=== PATIENT | female | born 2000 | race Hispanic/Latino ===

== ENCOUNTER 2020-05-11 18:17 | Emergency (ER) | payer OTHER ==
--- OUTSIDE RECORDS SUMMARY | 2020-05-11 18:20 | XMS REPORT | Continuity of Care Document ---
:2000 Author Organization [facility] t Address [address] [place] [address] Care Team Providers Name Role Phone Butch Gray MD Attending Clinician Won Aparicio Attending Clinician Sathya Mejias Attending Clinician Doctor Unassigned, Name Attending Clinician Unavailable Problems This patient has no known problems. Allergies, Adverse Reactions, Alerts This patient has no known allergies or adverse reactions. Medications This patient has no known medications. Procedures This patient has no known procedures. Encounters Start End Encounter Admission Attending Care Care Encounter Source Date/Time Date/Time Type Type Clinicians Facility Department ID 2020-05-06 2020-05-06 Initial Earlene Gray [facility] [id number] 09:56:43 11:24:52 [place] [id number] Visit [place] [id number] [place] [id number] [address] 2020-04-17 2020-04-17 [facility]phone [facility] [id number] 00:00:00 00:00:00 Becky C VARNISH FINISHER [id number] [facility] [id number] MATERNAL [id number] & CHILD 107 [facility] 2020-04-08 2020-04-08 Telephone Brandenadrianna [facility] [id number] 00:00:00 00:00:00 Becky C VARNISH FINISHER [id number] [facility] [id number] MATERNAL [id number] & CHILD 107 [facility] 2020-03-26 2020-03-26 Telephone Kishan [facility] [id number] 00:00:00 00:00:00 Emma N VARNISH FINISHER [id number] [facility] [id number] MATERNAL [id number] & CHILD 107 [facility] 2020-03-21 2020-03-21 Initial Kishan [facility] [id number] 09:06:48 10:00:50 Emma N VARNISH FINISHER [id number] Visit [facility] [id number] MATERNAL [phone] & CHILD 107 [facility] 2020-03-21 2020-03-21 Orders Doctor PIÑA [id number] 00:00:00 00:00:00 Only Unassigned, JIMENA [id number] [place] [facility] [id number] 2019-07-28 2019-07-28 Telephone [facility], [facility] [id number] 00:00:00 00:00:00 Becky C VARNISH FINISHER [id number] [facility] [id number] MATERNAL [phone] & CHILD 107 [facility] 2019-07-26 2019-07-26 Telephone [facility], [facility] [id number] 00:00:00 00:00:00 Becky C VARNISH FINISHER [id number] [facility] [id number] MATERNAL [id number] & CHILD 107 [facility] 2019-07-20 2019-07-20 Telephone [facility], [facility] [id number] 00:00:00 00:00:00 Becky C VARNISH FINISHER [id number] [facility] [id number] MATERNAL [id number] & CHILD 107 [facility] 2019-07-19 2019-07-19 Telephone [facility], [facility] [id number] 00:00:00 00:00:00 Becky C VARNISH FINISHER [id number] [facility] [id number] MATERNAL [phone] & CHILD [address] [place] [address] Results This patient has no known results.
[2020-05-11 20:06] LABS: Urine Blood NEGATIVE (NEG); Urine Glucose NEGATIVE (NEG); Urine Protein NEGATIVE (NEG); Urine Specific Gravity >1.030 (1.005-1.030); Urine pH 5.5 (5.0-7.0)
--- NOTE | 2020-05-11 20:35 | RAD REPORT ---
EXAM DESCRIPTION: RAD - Ankle Right 3 View - 05/11/2020 8:27 pm CLINICAL HISTORY: Ankle pain, twisting injury COMPARISON: None. FINDINGS: No fracture, dislocation or periosteal reaction. No joint effusion seen. No joint space na rrowing. Lateral soft tissue swelling is present. IMPRESSION: Soft tissue swelling with no right ankle fracture.
--- NOTE | 2020-05-11 21:13 | ER ---
Nurse's Notes [facility] Name: Lyssa Ford Age: 20 yrs Sex: Female : 2000 Arrival Date: 05/11/2020 Time: 18:22 Bed 23 Private MD: Diagnosis: Sprain of ankle;Fall on same level from slipping, tripping and stumbling Presentation: 05/11 19:13 Chief complaint: Patient states: Rolled R ankle and fell <30 minutes WATER SPONGER. Reports pain ca1 and swelling on R ankle. Reports RLQ pain after the fall. x 12 weeks. Coronavirus screen: Client denies travel out of the [place] in the last 14 days. At this time, the client does not indicate any symptoms associated with coronavirus-19. Ebola Screen: Patient negative for fever greater than or equal to 101.5 degrees Fahrenheit, and additional compatible Ebola Virus Disease symptoms Patient denies exposure to infectious person. Patient denies travel to an Ebola-affected area in the 21 days before illness onset. No symptoms or risks identified at this time. Initial Sepsis Screen: Does the patient meet any 2 criteria? No. Patient's initial sepsis screen is negative. Does the patient have a suspected source of infection? No. Patient's initial sepsis screen is negative. Risk Assessment: Do you want to hurt yourself or someone else? Patient reports no desire to harm self or others. Onset of symptoms was May 11, 2020. 19:13 Method Of Arrival: Ambulatory ca1 19:13 Acuity: COLTON 3 ca1 CUSTOMER CARE COORDINATOR: 19:15 2, Premature 1, Living 1, LMP 02/23/2020 ca1 Historical: - Allergies: 19:15 No Known Allergies; ca1 - Home Meds: 19:15 Vitamin Oral tab 1 tab once daily [Active]; ca1 20:47 promethazine 25 mg oral tab 1 tab as needed [Active]; Vitamin B-6 Oral as needed for sf Nausea Gravidarum [Active]; Unisom (doxylamine) oral oral as needed for Nausea Gravidarum [Active]; - PMHx: 19:15 None; ca1 - PSHx: 19:15 None; ca1 - Immunization history:: Flu vaccine is up to date. - Social history:: Smoking status: Patient denies any tobacco usage or history of. Screenin:35 Abuse screen: Denies threats or abuse. Denies injuries from another. Nutritional sf screening: No deficits noted. Tuberculosis screening: No symptoms or risk factors identified. Never had TB. Possible symptoms: None Risk factors: None. Fall Risk None identified. Fall in past 12 months (25 points). No secondary diagnosis (0 pts). No IV (0 pts). Ambulatory Aid- None/Bed Rest/Nurse Assist (0 pts). Gait- Impaired (20 pts.). Mental Status- Oriented to own ability (0 pts). Total James Fall Scale indicates Low Risk Score (25-44 pts). Fall prevention measures have been instituted. Side Rails Up X 2 Placed close to Nursing Station. Assessment: 20:35 General: Appears in no apparent distress. comfortable, Behavior is calm, cooperative. sf Pain: Complains of pain in right ankle Pain currently is 8 out of 10 on a pain scale. Neuro: No deficits noted. Level of Consciousness is awake, alert, obeys commands, Oriented to person, place, time, situation, Appropriate for age. Cardiovascular: No deficits noted. Capillary refill < 3 seconds Patient's skin is warm and dry. Respiratory: No deficits noted. Airway is patent Respiratory effort is even, unlabored, Respiratory pattern is regular, symmetrical. GI: Abdomen is non-distended, Reports lower abdominal pain, Patient currently denies diarrhea, nausea, vomiting. : Denies discharge, vaginal bleeding, vaginal itching. Musculoskeletal: Circulation, motion, and sensation intact. Swelling present in right ankle Tenderness present in right ankle Reports pain in right ankle. Vital Signs: 19:13 BP 124 / 80; Pulse 90; Resp 16 S; Temp 97.7(TE); Pulse Ox 100% on R/A; Weight 85.28 kg ca1 (R); Height 5 ft. 4 in. (162.56 cm) (R); Pain 8/10; 19:13 Body Mass Index 32.27 (85.28 kg, 162.56 cm) ca1 ED Course: 18:22 Patient arrived in ED. am2 19:15 Triage completed. ca1 19:15 Arm band placed on right wrist. ca1 19:37 [facility] kb 19:37 Donnie Gibbs MD is Attending Physician. kb 19:38 Kishan, [place], RN is Primary Nurse. iw 20:14 Ankle Right 3 View XRAY Sent. sf 20:14 X-ray(s) taken. sf 20:33 Ankle Right 3 View XRAY In Process Unspecified. EDMS 20:35 Patient has correct armband on for positive identification. Bed in low position. Call sf light in reach. Side rails up X 1. Door closed. Noise minimized. Visitors limited. Verbal reassurance given. 20:47 Bedside ultrasound. sf 20:51 Wound care: ice pack applied. sf 21:09 Matter Eval Tm 1 In Process Unspecified. EDMS 21:26 Jordan wrap to right ankle. sf 21:27 No provider procedures requiring assistance completed. Patient did not have IV access sf during this emergency room visit. Administered Medications: No medications were administered Outcome: 21:12 Discharge ordered by . kb 21:27 Discharged to home via wheelchair. sf 21:27 Condition: stable 21:27 Discharge instructions given to patient, Instructed on discharge instructions, follow up and referral plans. Demonstrated understanding of instructions, follow-up care. 21:34 Patient left the ED. sf Signatures: Dispatcher [employer] EDMS Jackie Woodruff, SOLID DIE CUTTER-C SOLID DIE CUTTER-Ckb Magnolia Holley, RN RN iw Gaby Lynch am2 Devika Mg RN RN ca1 Gino Xiong RN RN sf Corrections: (The following items were deleted from the chart) 19:25 19:13 Chief complaint: Patient states: Rolled R ankle and fell. Reports pain and ca1 swelling on R ankle. Reports RLQ pain after the fall. x 12 weeks. ca1 20:47 19:15 Home Meds: Promethazine Oral; ca1 sf 21:09 20:47 To radiology for Transvaginal Ob+US.RAD.HAVEN. sf EDMS
--- NOTE | 2020-05-11 21:13 | EDPHYS ---
Physician Documentation [facility] Name: Lyssa Ford Age: 20 yrs Sex: Female : 2000 Arrival Date: 05/11/2020 Time: 18:22 Bed 23 Private MD: ED Physician Donnie Gibbs HPI: 05/11 20:55 This 20 yrs old Female presents to ER via Ambulatory with complaints of Fall kb Injury, 12 wks preg, Abdominal Cramping - RLQ. 20:55 Details of fall: The patient fell from an upright position, during sports, soccer. kb Onset: The symptoms/episode began/occurred just prior to arrival. Associated injuries: The patient sustained injury to the abdomen, specifically the right lower quadrant, cramping, right ankle, painful injury, swelling. Severity of symptoms: At their worst the symptoms were moderate, in the emergency department the symptoms are unchanged. The patient has not experienced similar symptoms in the past. The patient has not recently seen a physician. SITE LEAD: 19:15 2, Premature 1, Living 1, LMP 02/23/2020 ca1 Historical: - Allergies: 19:15 No Known Allergies; ca1 - Home Meds: 19:15 Vitamin Oral tab 1 tab once daily [Active]; ca1 20:47 promethazine 25 mg oral tab 1 tab as needed [Active]; Vitamin B-6 Oral as needed for sf Nausea Gravidarum [Active]; Unisom (doxylamine) oral oral as needed for Nausea Gravidarum [Active]; - PMHx: 19:15 None; ca1 - PSHx: 19:15 None; ca1 - Immunization history:: Flu vaccine is up to date. - Social history:: Smoking status: Patient denies any tobacco usage or history of. ROS: 20:53 Constitutional: Negative for fever, chills, and weight loss, Cardiovascular: Negative kb for chest pain, palpitations, and edema, Respiratory: Negative for shortness of breath, cough, wheezing, and pleuritic chest pain, Skin: Negative for injury, rash, and discoloration, Neuro: Negative for headache, weakness, numbness, tingling, and seizure. 20:53 Abdomen/GI: Positive for abdominal cramps, of the right lower quadrant. 20:53 MS/extremity: Positive for pain, swelling, tenderness, of the right ankle. Exam: 20:54 Constitutional: This is a well developed, well nourished patient who is awake, alert, kb and in no acute distress. Head/Face: Normocephalic, atraumatic. Chest/axilla: Normal chest wall appearance and motion. Cardiovascular: Regular rate and rhythm with a normal S1 and S2. No gallops, murmurs, or rubs. No pulse deficits. Respiratory: Lungs have equal breath sounds bilaterally, clear to auscultation. No rales, rhonchi or wheezes noted. No increased work of breathing, no retractions or nasal flaring. Skin: Warm, dry with normal turgor. Normal color with no rashes, no lesions, and no evidence of cellulitis. Neuro: Awake and alert, GCS 15, oriented to person, place, time, and situation. Cranial nerves II-XII grossly intact. Moves all extremities. Sensory grossly intact. Cerebellar exam normal. Normal gait. 20:54 Abdomen/GI: Inspection: abdomen appears normal, Palpation: abdomen is soft and non-tender, in all quadrants. 20:54 Musculoskeletal/extremity: Extremities: grossly normal except: noted in the right ankle: pain, swelling, tenderness, ROM: limited active range of motion due to pain, in the right ankle, Circulation is intact in all extremities. Sensation intact. Weight bearing: able to fully bear weight. Vital Signs: 19:13 BP 124 / 80; Pulse 90; Resp 16 S; Temp 97.7(TE); Pulse Ox 100% on R/A; Weight 85.28 kg ca1 (R); Height 5 ft. 4 in. (162.56 cm) (R); Pain 8/10; 19:13 Body Mass Index 32.27 (85.28 kg, 162.56 cm) ca1 MDM: 19:38 Patient medically screened. kb 20:53 Data reviewed: vital signs, nurses notes. Data interpreted: Pulse oximetry: on room air kb is 100 %. Interpretation: normal. Counseling: I had a detailed discussion with the patient and/or guardian regarding: the historical points, exam findings, and any diagnostic results supporting the discharge/admit diagnosis, radiology results, the need for outpatient follow up, an OB/Gyne specialist, to return to the emergency department if symptoms worsen or persist or if there are any questions or concerns that arise at home. 05/11 19:58 Order name: Urine --Ancillary (enter results); Complete Time: 20:07 kb 05/11 19:58 Order name: Urine Dipstick--Ancillary (enter results); Complete Time: 20:07 kb 05/11 19:56 Order name: Ankle Right 3 View XRAY; Complete Time: 20:36 kb 05/11 21:09 Order name: Matter Eval Tm 1; Complete Time: 21:24 EDMS 05/11 21:28 Order name: Jordan wrap-joint; Complete Time: 21:28 sf Administered Medications: No medications were administered Disposition: 05/12 20:08 Co-signature as Attending Physician, Donnie Gibbs MD. [facility] Disposition: 05/11/20 21:12 Discharged to Home. Impression: Sprain of ankle, Fall on same level from slipping, tripping and stumbling. - Condition is Stable. - Discharge Instructions: Ankle Sprain, [id number]. - Medication Reconciliation Form, Thank You Letter, Antibiotic Education, Prescription Opioid Use form. - Follow up: Emergency Department; When: As needed; Reason: Worsening of condition. Follow up: Private Physician; When: 2 - 3 days; Reason: Recheck today's complaints, Continuance of care, Re-evaluation by your physician. Signatures: Dispatcher [employer] [facility] Jackie Woodruff, OBSTETRICS SCRUB NURSE-C OBSTETRICS SCRUB NURSE-CkDevika Llanos RN RN [facility] Donnie Gibbs MD MD [facility] Gino Xiong RN RN sf Corrections: (The following items were deleted from the chart) 05/11 20:47 19:15 Home Meds: Promethazine Oral; ca1 sf 21:09 19:56 Transvaginal Ob+US.RAD.BRZ ordered. [facility] 21:34 21:12 05/11/2020 21:12 Discharged to Home. Impression: Sprain of ankle; Fall on same sf level from slipping, tripping and stumbling. Condition is Stable. Discharge Instructions: Ankle Sprain, [id number]. Forms are Medication Reconciliation Form, Thank You Letter, Antibiotic Education, Prescription Opioid Use. Follow up: Emergency Department; When: As needed; Reason: Worsening of condition. Follow up: Private Physician; When: 2 - 3 days; Reason: Recheck today's complaints, Continuance of care, Re-evaluation by your physician. kb
--- NOTE | 2020-05-11 21:23 | RAD REPORT ---
EXAM DESCRIPTION: US - Matter Eval Tm 1 - 05/11/2020 9:09 pm COMPARISON: None. FINDINGS: A single intrauterine gestation is identified. Heart rate is 163-168 bpm. No hematoma, mas s or other suspicious finding. Long Neck-rump length measurement corresponds to a 11 W 5 d age. [facility] is . No suspicion for placental abnormality. Amniotic fluid volume is normal. Both ovaries are identified show normal stroma blood flow pattern. No adnexal mass. Cervical canal is closed. IMPRESSION: Single 11 W 5 d intrauterine gestation. [facility] is 11/25/2020.
[2020-05-11 21:39] VITALS: BP 124/80; TEMP 97.7; O2SAT 100
== END 2020-05-11 21:34 | disposition home or self-care (01) ==
LOC: ER 18:17
DX: O9A.211 Injury, poisoning and certain other consequences of external causes complicating pregnancy, first trimester (principal); S93.401A Sprain of unspecified ligament of right ankle, initial encounter; Z3A.11 11 weeks gestation of pregnancy; W18.39XA Other fall on same level, initial encounter; Y93.66 Activity, soccer; Y92.9 Unspecified place or not applicable
CPT/HCPCS: 76801; 81003; 81025; 99283

== ENCOUNTER 2021-02-25 11:24 | Emergency (ER) | payer OTHER ==
--- OUTSIDE RECORDS SUMMARY | 2021-02-25 11:31 | XMS REPORT | Continuity of Care Document ---
:2000 Author Organization [facility] t Address [address] [place] [address] Care Team Providers Name Role Phone Kameron CASTRO, C Primary Care Physician LINSEY Attending Clinician Unavailable Mikael Ibarra MD Attending Clinician Carmel MITTAL Attending Clinician Haley Yu MD Attending Clinician 2, Lab Attending Clinician Unavailable MIKAEL IBARRA Attending Clinician Unavailable Linsey LIRA Attending Clinician Doctor Unassigned, Name Attending Clinician Unavailable Иван COLLAZO Attending Clinician Ultrasound, Mfm Attending Clinician Unavailable Omid COLLAZO Attending Clinician Bal COLLAZO, F Attending Clinician Ultrasound Attending Clinician Unavailable Chandni Thomas MD Attending Clinician Pollo Little DO Attending Clinician Sathya MORALES Attending Clinician Unavailable Won Aparicio Attending Clinician Won MELO Attending Clinician Unavailable Sathya Mejias Attending Clinician Willie VALENCIA Attending Clinician Unavailable MIKAEL IBARRA Admitting Clinician Unavailable Mikael Ibarra MD Admitting Clinician Иван COLLAZO Admitting Clinician Payers Payer Name Policy Type Policy Number Effective Date Expiration Date S reed [place] [facility] [id number] 2020 HEALTH 00:00:00 [place]ID OF [place] [id number] 2020 00:00:00 MEDICAID PENDING PENDING 2020 00:00:00 Advance Directives Directive Decision Effective Termination Comments Source Date Date Healthcare Agents on N/A Univ ersity FileNameRelationshipHealthcare [facility] Agent Medical RelationshipCommunicationAr[facility] Hospital[facility] Care [phone] (Home)[email or web address] Genetics Problems Condition Condition Condition Status Onset Resolution Last Treating Co mments Source Name Details Category Date Date Treatment Clinician Date Oligohydra Oligohydra Disease Active U nivers mnios in mnios in 8-30 ity of third third 00:00: [place] trimester, trimester, 00 Me dical single or single or Bran ch unspecifie unspecifie d fetus d fetus Liveborn Liveborn Disease Active Unive rs , of infant, of 8-30 it y of francois francois 00:00: Marylin cleaning , , 00 Me dical born in born in [facility] by vaginal by vaginal delivery delivery Round Round Disease Active Univers ligament ligament 4-26 ity of pain pain 00:00: [place] 00 [facility] Nausea and Nausea and Disease Active U nivers vomiting vomiting 2-01 ity of during during 00:00: [place] 00 [facility] Rubella Rubella Disease Active Univers non-immune non-immune 1-19 it y of status, status, 00:00: [place] antepartum antepartum 00 [facility] Branch H/O H/O Disease Active Univers chlamydia chlamydia 1-14 ity of infection infection 00:00: [place] cleaning 00 [facility] Multiparit Multiparit Disease Active U nivers y y 1-14 ity of 00:00: [place] 00 [facility] High-risk High-risk Disease Active Uni vers 1-14 ity of in third in third 00:00: [place] trimester trimester 00 [facility] History of History of Disease Active U nivers 1-14 ity of delivery, delivery, 00:00: Marylin cleaning currently currently 00 [facility] Branch Obesity Obesity Disease Active Univers affecting affecting 1-14 ity of , , 00:[place] antepartum antepartum 00 Me dical Branch Chlamydia Chlamydia Disease Active Uni vers trachomati trachomati 5-13 it y of s s 00:00: [place] infection infection 00 Medi destini of lower of lower Branch genitourin genitourin ivanna sites ivanna sites Obesity Obesity Disease Active Univers (BMI (BMI 5-12 ity of 30-39.9) 30-39.9) 00:00: [place] 00 Medical Branch Other Other Disease Active Univers general general 5-12 ity of counseling counseling 00:00[place] and advice and advice 00 Me dical for for Branch contracept contracept ilya ilya management management Nexplanon Nexplanon Disease Active Uni vers removal removal 4-29 ity of 00:00: [place] [facility] Nipple Nipple Disease Active Univers pain pain 9-20 ity of 00:: [address] 37 weeks 37 weeks Disease Active Unive rs gestation gestation 9-17 ity of of of 00:00: [place] 00 [facility] Branch Positive Positive Disease Active Unive rs GBS test GBS test 9-16 ity of 00:00: [address] Allergies, Adverse Reactions, Alerts Allergy Allergy Status Severity Reaction(s) Onset Inactive Treating Comm ents Source Name Type Date Date Clinician NO KNOWN Drug Active Univers ALLERGIE Class ity of [facility] Social History Social Habit Start Date Stop Date Quantity Comments Source ASSERTION 2020-02-29 University 00:00:00 [facility] Exposure to Not sure [facility] SARS-CoV-[address] [facility] (event) Branch Tobacco use and 2020-11-04 2020-11-04 Never used Universit y of exposure 00:00:00 00:00:00 [facility] Alcohol intake 2020-11-04 2020-11-04 Current University of 00:00:00 00:00:00 non-drinker of [facility] alcohol Branch (finding) Sex Assigned At 2000 2000 Universit y of 00:00:00 00:00:00 [facility] Smoking Status Start Date Stop Date Source Never smoker University [facility] xa Medical Branch Medications Ordered Filled Start Stop Current Ordering Indication Dosage Frequency Signature Comments Components Source Medication Medication Date Date Medication? Clinician (SIG) Name Name metroNIDAZO Yes [id number] 500mg Take 1 Univers LE (FLAGYL) 9-03 tablet by ity of 500 mg 00:00: mouth 2 [place] tablet 00 (two) Medical times Branch daily. metroNIDAZO Yes [id number] 500mg Take 1 Univers LE (FLAGYL) 9-03 tablet by ity of 500 mg 00:00: mouth 2 [place] tablet 00 (two) Medical times Branch daily. Yes [id number] 1{tbl} Take 1 Univers vitamin 8-31 tablet by ity of w/FA tablet 00:00: mouth [place] 00 daily. Medical Branch docusate Yes [id number] 240mg Take 1 U nivers calcium 240 8-31 capsule by it y of mg capsule 00:00: mouth once [place] 00 daily as Medical needed for Branch Constipati on. ferrous Yes [id number] 325mg Take 1 Un ivana sulfate 325 8-31 tablet by ity of mg (65 mg 00:00: mouth 2 [place] iron) 00 (two) Medical tablet times Branch daily. ibuprofen Yes [id number] 600mg Take 1 Univers 600 mg 8-31 tablet by ity of tablet 00:00: mouth [place] 00 every 6 Medical (six) Branch hours as needed (Pain). Take with food or milk. Yes [id number] 1{tbl} Take 1 Univers vitamin 8-31 tablet by ity of w/FA tablet 00:00: mouth [place] 00 daily. Medical Branch docusate Yes [id number] 240mg Take 1 U nivers calcium 240 8-31 capsule by it y of mg capsule 00:00: mouth once [place] 00 daily as Medical needed for Branch Constipati on. ferrous Yes [id number] 325mg Take 1 Un ivana sulfate 325 8-31 tablet by ity of mg (65 mg 00:00: mouth 2 [place] iron) 00 (two) Medical tablet times Branch daily. ibuprofen Yes [id number] 600mg Take 1 Univers 600 mg 8-31 tablet by ity of tablet 00:00: mouth [place] 00 every 6 Medical (six) Branch hours as needed (Pain). Take with food or milk. Yes [id number] 1{tbl} Take 1 Univers vitamin 8-31 tablet by ity of w/FA tablet 00:00: mouth [place] 00 daily. Medical Branch docusate Yes [id number] 240mg Take 1 U nivers calcium 240 8-31 capsule by it y of mg capsule 00:00: mouth once [place] 00 daily as Medical needed for Branch Constipati on. ferrous Yes [id number] 325mg Take 1 Un ivana sulfate 325 8-31 tablet by ity of mg (65 mg 00:00: mouth 2 [place] iron) 00 (two) Medical tablet times Branch daily. ibuprofen Yes [id number] 600mg Take 1 Univers 600 mg 8-31 tablet by ity of tablet 00:00: mouth [place] 00 every 6 Medical (six) Branch hours as needed (Pain). Take with food or milk. Yes [id number] 1{tbl} Take 1 Univers vitamin 8-31 tablet by ity of w/FA tablet 00:00: mouth [place] 00 daily. Medical Branch docusate Yes [id number] 240mg Take 1 U nivers calcium 240 8-31 capsule by it y of mg capsule 00:00: mouth once [place] 00 daily as Medical needed for Branch Constipati on. ferrous Yes [id number] 325mg Take 1 Un ivana sulfate 325 8-31 tablet by ity of mg (65 mg 00:00: mouth 2 [place] iron) 00 (two) Medical tablet times Branch daily. ibuprofen Yes [id number] 600mg Take 1 Univers 600 mg 8-31 tablet by ity of tablet 00:00: mouth [place] 00 every 6 Medical (six) Branch hours as needed (Pain). Take with food or milk. Yes [id number] 1{tbl} Take 1 Univers vitamin 8-31 tablet by ity of w/FA tablet 00:00: mouth [place] 00 daily. Medical Branch docusate Yes [id number] 240mg Take 1 U nivers calcium 240 8-31 capsule by it y of mg capsule 00:00: mouth once [place] 00 daily as Medical needed for Branch Constipati on. ferrous Yes [id number] 325mg Take 1 Un ivana sulfate 325 8-31 tablet by ity of mg (65 mg 00:00: mouth 2 [place] iron) 00 (two) Medical tablet times Branch daily. ibuprofen 0 Yes [id number] 600mg Take 1 Univers 600 mg 8-31 tablet by ity of tablet 00:00: mouth [place] 00 every 6 Medical (six) Branch hours as needed (Pain). Take with food or milk. 2020-0 Yes [id number] 1{tbl} Take 1 Univers vitamin 8-31 tablet by ity of w/FA tablet 00:00: mouth [place] 00 daily. Medical Branch docusate Yes [id number] 240mg Take 1 U nivers calcium 240 8-31 capsule by it y of mg capsule 00:00: mouth once [place] 00 daily as Medical needed for Branch Constipati on. ferrous 0 Yes [id number] 325mg Take 1 Un ivana sulfate 325 8-31 tablet by ity of mg (65 mg 00:00: mouth 2 [place] iron) 00 (two) Medical tablet times Branch daily. ibuprofen Yes [id number] 600mg Take 1 Univers 600 mg 8-31 tablet by ity of tablet 00:00: mouth [place] 00 every 6 Medical (six) Branch hours as needed (Pain). Take with food or milk. 0 Yes [id number] 1{tbl} Take 1 Univers vitamin 8-31 tablet by ity of w/FA tablet 00:00: mouth [place] 00 daily. Medical Branch docusate Yes [id number] 240mg Take 1 U nivers calcium 240 8-31 capsule by it y of mg capsule 00:00: mouth once [place] 00 daily as Medical needed for Branch Constipati on. ferrous 2020-0 Yes [id number] 325mg Take 1 Un ivana sulfate 325 8-31 tablet by ity of mg (65 mg 00:00: mouth 2 [place] iron) 00 (two) Medical tablet times Branch daily. ibuprofen 2020-0 Yes [id number] 600mg Take 1 Univers 600 mg 8-31 tablet by ity of tablet 00:00: mouth [place] 00 every 6 Medical (six) Branch hours as needed (Pain). Take with food or milk. 2020-0 Yes [id number] 1{tbl} Take 1 Univers vitamin 8-31 tablet by ity of w/FA tablet 00:00: mouth [place] 00 daily. Medical Branch docusate Yes [id number] 240mg Take 1 U nivers calcium 240 8-31 capsule by it y of mg capsule 00:00: mouth once [place] 00 daily as Medical needed for Branch Constipati on. ferrous Yes [id number] 325mg Take 1 Un ivana sulfate 325 8-31 tablet by ity of mg (65 mg 00:00: mouth 2 [place] iron) 00 (two) Medical tablet times Branch daily. ibuprofen Yes [id number] 600mg Take 1 Univers 600 mg 8-31 tablet by ity of tablet 00:00: mouth [place] 00 every 6 Medical (six) Branch hours as needed (Pain). Take with food or milk. rho(D) Yes 300ug 300 mcg, Univer s immune 8-30 Intramuscu ity of globulin 20:09: lar, ONCE, [place] (RHOGAM) 30 For 1 Medical syringe 300 dose, Branch mcg Conditiona l, Routine rho(D) Yes 300ug 300 mcg, Univer s immune 8-30 Intramuscu ity of globulin 20:09: lar, ONCE, [place] (RHOGAM) 30 For 1 Medical syringe 300 dose, Branch mcg Conditiona l, Routine witch Nata Yes Topical, Un ivana (TUCKS) 50 8-30 Q4HPRN, ity of % topical 20:09: Starting [place] pad 28 Mon [facility] 11/04/20 at Branch 1509, Until Discontinu ed, Routine, rectal/hem orrhoidal pain ibuprofen Yes 600mg 600 mg, Univ ers (IBU) 8-30 Oral, ity of tablet 600 20:09: Q6HPRN, [place] mg 28 Starting Medical Mon [place] 11/04/20 at 1509, Until Discontinu ed, Routine, Pain (scale 4-6) ondansetron Yes 4mg 4 mg, Slow Univers (ZOFRAN 8-30 IV Push, ity of (PF)) 20:09: Q8HPRN, [place] injection 4 28 Starting Medi destini mg [facility] 11/04/20 at 1509, Until Discontinu ed, Routine, Nausea and Vomiting (N/V) simethicone Yes 160mg 160 mg, Un ivana (GAS RELIEF 8-30 Oral, ity of (SIMETHICON 20:09: PC+HSPRN, [place] E)) 28 Starting Medical chewable Mon Branch tablet 160 11/04/20 at mg 1509, Until Discontinu ed, Routine, Gas magnesium 2020-0 Yes 30mL 30 mL, Univer s hydroxide 8-30 Oral, ity of (MILK OF 20:09: QDAILYPRN, [place] MAGNESIA) 28 Starting Medica l 400 mg/5 mL Mon Branch suspension 11/04/20 at 30 mL 1509, Until Discontinu ed, Routine, Constipati on witch Nata 0 Yes Topical, Un ivana (TUCKS) 50 8-30 Q4HPRN, ity of % topical 20:09: [place] pad 28 Mon Medical 11/04/20 at Branch 1509, Until Discontinu ed, Routine, rectal/hem orrhoidal pain ibuprofen 0 Yes 600mg 600 mg, Univ ers (IBU) 8-30 Oral, ity of tablet 600 20:09: Q6HPRN, [place] mg 28 Starting Medical Mon Branch 11/04/20 at 1509, Until Discontinu ed, Routine, Pain (scale 4-6) ondansetron 0 Yes 4mg 4 mg, Slow Univers (ZOFRAN 8-30 IV Push, ity of (PF)) 20:09: Q8HPRN, [place] injection 4 28 Starting Medi destini mg Mon Branch 11/04/20 at 1509, Until Discontinu ed, Routine, Nausea and Vomiting (N/V) simethicone 0 Yes 160mg 160 mg, Un ivana (GAS RELIEF 8-30 Oral, ity of (SIMETHICON 20:09: PC+HSPRN, [place] E)) 28 Starting Medical chewable Mon Branch tablet 160 11/04/20 at mg 1509, Until Discontinu ed, Routine, Gas magnesium 2020-0 Yes 30mL 30 mL, Univer s hydroxide 8-30 Oral, ity of (MILK OF 20:09: QDAILYPRN, [place] MAGNESIA) 28 Starting Medica l 400 mg/5 mL Mon Branch suspension 11/04/20 at 30 mL 1509, Until Discontinu ed, Routine, Constipati on HYDROcodone 2020-0 Yes 1{tbl} 1 tablet, Univers -acetaminop 8-30 Oral, ity of hen (NORCO 20:09: Q6HPRN, [place] 5) 5-325 mg 27 Starting Medi destini tablet 1 Mon Branch tablet 11/04/20 at 1509, Until Discontinu ed, Routine, Pain (scale 7-10) acetaminoph 2021-0 Yes 650mg 650 mg, Un ivana en 8-30 Oral, ity of (TYLENOL) 20:09: Q6HPRN, [place] tablet 650 27 Starting Medic al mg Mon Branch 11/04/20 at 1509, Until Discontinu ed, Routine, Pain (scale 1-3) diphenhydrA 2021-0 Yes 25mg 25 mg, Univ ers MINE 8-30 Oral, ity of (BENADRYL) 20:09: Q6HPRN, [place] tablet 25 27 Starting Medica l mg Mon Branch 11/04/20 at 1509, Until Discontinu ed, Routine, Sleep, Itching benzocaine- 2020-0 Yes Topical, Un ivana menthol 8-30 PRN, ity of (DERMOPLAST 20:09: Starting [place] ) 20-0.5 % 27 Mon Medical topical 11/04/20 at Branch spray 1509, Until Discontinu ed, Routine, Perineum discomfort HYDROcodone 2020-0 Yes 1{tbl} 1 tablet, Univers -acetaminop 8-30 Oral, ity of hen (NORCO 20:09: Q6HPRN, [place] 5) 5-325 mg 27 Starting Medi destini tablet 1 Mon Branch tablet 11/04/20 at 1509, Until Discontinu ed, Routine, Pain (scale 7-10) acetaminoph 2021-0 Yes 650mg 650 mg, Un ivana en 8-30 Oral, ity of (TYLENOL) 20:09: Q6HPRN, [place] tablet 650 27 Starting Medic al mg Mon Branch 11/04/20 at 1509, Until Discontinu ed, Routine, Pain (scale 1-3) diphenhydrA 2021-0 Yes 25mg 25 mg, Univ ers MINE 8-30 Oral, ity of (BENADRYL) 20:09: Q6HPRN, [place] tablet 25 27 Starting Medica l mg Mon Branch 11/04/20 at 1509, Until Discontinu ed, Routine, Sleep, Itching benzocaine- 2020-0 Yes Topical, Un ivana menthol 8-30 PRN, ity of (DERMOPLAST 20:09: Starting [place] ) 20-0.5 % 27 Mon Medical topical 11/04/20 at Branch spray 1509, Until Discontinu ed, Routine, Perineum discomfort LR 1000 mL 2020- No 999mL/h 999 mL/hr, Univers + oxytocin 11-04 IV ity of 20 units IV 20:00: 19:40 Infusion, [place] Solution 00 :00 ONCE, Mon Medica l 11/04/20 at Branch 1500, For 1 dose
In fuse 999 mL /hr & amp;nbsp;o torrey 30 minutes and then decrease rate to 125 mL/hr for the remainder.
LR 1000 mL 2020- No 999mL/h 999 mL/hr, Univers + oxytocin 11-04 IV ity of 20 units IV 20:00: 19:40 Infusion, [place] Solution 00 :00 ONCE, Mon Medica l 11/04/20 at Branch 1500, For 1 dose
In fuse 999 mL /hr & amp;nbsp;o torrey 30 minutes and then decrease rate to 125 mL/hr for the remainder.
FENTanyl 2 2020- No Intra-op Un ivana mcg/mL + 11-04 08-30 ity of bupivacaine 18:05: 21:41 [place] 0.125% in 00 :23 Medical NS 250 mL Branch epidural bag FENTanyl 2 2020- No Intra-op Un ivana mcg/mL + 11-04 08-30 ity of bupivacaine 18:05: 21:41 [place] 0.125% in 00 :23 Medical NS 250 mL Branch epidural bag lidocaine-e 2020- No Intraderma Univers pinephrine 11-04 l, ONCE ity o f (XYLOCAINE 18:04: 21:41 INTRA [place] W/EPINEPHRI 00 :23 PROCEDURE, De dical NE) 1.5 Starting Branch %-1:200,000 Mon injection 11/04/20 at 1304, Until 11/04/20 at 1641, Routine, Intra-op lidocaine-e 2020- No Intraderma Univers pinephrine 11-04-30 l, ONCE ity o f (XYLOCAINE 18:04: 21:41 INTRA [place] W/EPINEPHRI 00 :23 PROCEDURE, Me dical NE) 1.5 Starting Branch %-1:200,000 Mon injection 11/04/20 at 1304, Until Wed11/04/20 at 1641, Routine, Intra-op lidocaine 2020- No Infiltrati U nivers 1% 11-04 on, ONCE ity of (XYLOCAINE) 18:00: 21:41 INTRA [place] 100 mg/10 00 : PROCEDURE, Medi destini mL (1 %) Starting Branch injection Wed11/04/20 at 1300, Until Wed11/04/20 at 1641, Routine, Intra-op lidocaine 2020- No Infiltrati U nivers 1% 11-04 on, ONCE ity of (XYLOCAINE) 18:00: 21:41 INTRA [place] 100 mg/10 00 :23 PROCEDURE, Medi destini mL (1 %) Starting Branch injection Wed11/04/20 at 1300, Until Wed11/04/20 at 1641, Routine, Intra-op lactated 2020- No 500mL at 999 Unive rs ringers IV 11-04 08-30 mL/hr, 500 it y of infusion 16:15: 17:11 mL, IV [place] 500 mL 00 :00 Infusion, Medical ONCE, 1 Branch dose, Wed11/04/20 at 1115, Routine lactated 2020- No 500mL at 999 Unive rs ringers IV 11-04 08-30 mL/hr, 500 it y of infusion 16:15: 17:11 mL, IV [place] 500 mL 00 :00 Infusion, Medical ONCE, 1 Branch dose, Wed11/04/20 at 1115, Routine D5W-LR IV 2020- No 1000mL at 125 Uni vers infusion 11-04 08-30 mL/hr, IV ity o f 1,000 mL 15:15: 20:09 Infusion, [place] 00 :30 CONTINUOUS Medical , Starting Branch 11/04/20 at 1015, Until Wed11/04/20 at 1509, Routine D5W-LR IV 2020- No 1000mL at 125 Uni vers infusion 8-30 08-30 mL/hr, IV ity o f 1,000 mL 15:15: 20:09 Infusion, [place] 00 :30 CONTINUOUS Medical , Starting Branch 11/04/20 at 1015, Until 11/04/20 at 1509, Routine LR 1000 mL 2020- No 2mU/min at 6-120 Univers + oxytocin 8-30 08-30 mL/hr, IV ity of 20 units IV 15:13: 20:09 Infusion, [place] Solution 01 :30 TITRATE, Medical Starting Branch 11/04/20 at 1013, Until 11/04/20 at 1509, CHASE LR 1000 mL 2020- No 2mU/min at 6-120 Univers + oxytocin 830 08-30 mL/hr, IV ity of 20 units IV 15:13: 20:09 Infusion, [place] Solution 01 :30 TITRATE, Medical Starting Branch Wed11/04/20 at 1013, Until Wed11/04/20 at 1509, CHASE pyridoxine 2020- No Take by Un ivana HCl, 10-07 mouth. ity of vitamin B6, 21:03: 00:00 [place] (VITAMIN 42 :00 Medical B-6 ORAL) Branch doxylamine 2020- No Take by Un ivana (UNISOM, 10-07 mouth. ity of DOXYLAMINE, 21:03: 00:00 [place] ) 25 mg 36 :00 Medical tablet Branch pyridoxine Yes Take by Uni vers HCl, -11 mouth. ity of vitamin B6, 09:45: (VITAMIN 07 Medical B-6 ORAL) Branch doxylamine Yes Take by Uni vers (UNISOM, 09-15 mouth. ity of DOXYLAMINE, 09:45: [place] ) 25 mg 07 Medical tablet Branch Nitrofurant 2020- No 100mg 100 mg, U nivers oin&Nit. 08-2217 Oral, ity of Macrocryst 18:45: 17:49 ONCE, 1 [place] (MACROBID) 00 :00 dose, [place] Medi destini 100 mg 08/22/20 at Branch capsule 100 1345, mg Routine
Reason for Anti-Infec tive: Empiric Therapy for Suspected Infection< br>Empiric Therapy Site: Urine
D uration of therapy: 72 hours metroNIDAZO No 500mg 500 mg, U martitaers LE (FLAGYL) 08-22 06-17 Oral, ity of tablet 500 18:45: 17:49 ONCE, 1 [place] mg 00 :00 dose, [facility] Medical 08/22/20 at Branch 1345, Routine
Reason for Anti-Infec tive: Documented Infection< br>Documen rosina Infection Site: Other
O ther site: vaginitis< br>Duratio n of Therapy: Other (see Comments) pyridoxine Yes Take by Uni vers HCl, 6-17 mouth. ity of vitamin B6, 18:07: [place] (VITAMIN 53 Medical B-6 ORAL) Branch doxylamine Yes Take by Uni vers (UNISOM, -17 mouth. ity of DOXYLAMINE, 18:07: [place] ) 25 mg 53 Medical tablet Branch pyridoxine Yes Take by Uni vers HCl, 6-17 mouth. ity of vitamin B6, 18:07: [place] (VITAMIN 53 Medical B-6 ORAL) Branch doxylamine Yes Take by Uni vers (UNISOM, 6-17 mouth. ity of DOXYLAMINE, 18:07: [place] ) 25 mg 53 Medical tablet Branch pyridoxine Yes Take by Uni vers HCl, 6-17 mouth. ity of vitamin B6, 18:07: [place] (VITAMIN 53 Medical B-6 ORAL) Branch doxylamine Yes Take by Uni vers (UNISOM, 6-17 mouth. ity of DOXYLAMINE, 18:07: [place] ) 25 mg 53 Medical tablet Branch pyridoxine Yes Take by Uni vers HCl, 6-17 mouth. ity of vitamin B6, 18:07: [place] (VITAMIN 53 Medical B-6 ORAL) Branch doxylamine Yes Take by Uni vers (UNISOM, 6-17 mouth. ity of DOXYLAMINE, 18:07: [place] ) 25 mg 53 Medical tablet Branch pyridoxine Yes Take by Uni vers HCl, 6-17 mouth. ity of vitamin B6, 18:07: [place] (VITAMIN 53 Medical B-6 ORAL) Branch doxylamine Yes Take by Uni vers (UNISOM, 6-17 mouth. ity of DOXYLAMINE, 18:07: [place] ) 25 mg 53 Medical tablet Branch metroNIDAZO Yes [id number] 500mg Take 1 Univers LE 500 mg 6-17 tablet by ity o f tablet 00:00: mouth 2 [place] 00 (two) Medical times Branch daily. Nitrofurant Yes [id number] 100mg Take 1 Univers oin&Nit. 6-17 capsule by ity o f Macrocryst 00:00: mouth 2 [place] 100 mg 00 (two) Medical capsule times Branch daily. metroNIDAZO Yes [id number] 500mg Take 1 Univers LE 500 mg 6-17 tablet by ity o f tablet 00:00: mouth 2 00 (two) Medical times Branch daily. Nitrofurant Yes [id number] 100mg Take 1 Univers oin&Nit. 6-17 capsule by ity o f Macrocryst 00:00: mouth 2 [place] 100 mg 00 (two) Medical capsule times Branch daily. metroNIDAZO Yes [id number] 500mg Take 1 Univers LE 500 mg 6-17 tablet by ity o f tablet 00:00: mouth 2 00 (two) Medical times Branch daily. Nitrofurant Yes [id number] 100mg Take 1 Univers oin&Nit. 6-17 capsule by ity o f Macrocryst 00:00: mouth 2 [place] 100 mg 00 (two) Medical capsule times Branch daily. metroNIDAZO Yes [id number] 500mg Take 1 Univers LE 500 mg 6-17 tablet by ity o f tablet 00:00: mouth 2 00 (two) Medical times Branch daily. Nitrofurant Yes [id number] 100mg Take 1 Univers oin&Nit. 6-17 capsule by ity o f Macrocryst 00:00: mouth 2 [place] 100 mg 00 (two) Medical capsule times Branch daily. metroNIDAZO Yes [id number] 500mg Take 1 Univers LE 500 mg 6-17 tablet by ity o f tablet 00:00: mouth 2 [place] 00 (two) Medical times Branch daily. Nitrofurant 2020-0 Yes [id number] 100mg Take 1 Univers oin&Nit. 6-17 capsule by ity o f Macrocryst 00:00: mouth 2 [place] 100 mg 00 (two) Medical capsule times Branch daily. metroNIDAZO 2020-0 Yes [id number] 500mg Take 1 Univers LE 500 mg 6-17 tablet by ity o f tablet 00:00: mouth 2 [place] 00 (two) Medical times Branch daily. Nitrofurant 2020-0 Yes [id number] 100mg Take 1 Univers oin&Nit. 6-17 capsule by ity o f Macrocryst 00:00: mouth 2 [place] 100 mg 00 (two) Medical capsule times Branch daily. metroNIDAZO 2020-0 2020- No [id number] 500mg Take 1 Univers LE 500 mg 6-17 08-02 tablet by ity of tablet 00:00: 00:00 mouth 2 [place] 00 :00 (two) Medical times Branch daily. Nitrofurant 2020-0 1- No [id number] 100mg Take 1 Univers oin&Nit. 6-17 08-02 capsule by ity of Macrocryst 00:00: 00:00 mouth 2 [place] 100 mg 00 :00 (two) Medical capsule times Branch daily. pyridoxine Yes Take by Uni vers HCl, 5-25 mouth. ity of vitamin B6, 13:59: [place] (VITAMIN 46 Medical B-6 ORAL) Branch doxylamine Yes Take by Uni vers (UNISOM, 5-25 mouth. ity of DOXYLAMINE, 13:59: [place] ) 25 mg 46 Medical tablet Branch pyridoxine Yes Take by Uni vers HCl, 5-25 mouth. ity of vitamin B6, 13:59: [place] (VITAMIN 46 Medical B-6 ORAL) Branch doxylamine Yes Take by Uni vers (UNISOM, 5-25 mouth. ity of DOXYLAMINE, 13:59: [place] ) 25 mg 46 Medical tablet Branch pyridoxine Yes Take by Uni vers HCl, 5-25 mouth. ity of vitamin B6, 13:59: [place] (VITAMIN 46 Medical B-6 ORAL) Branch doxylamine 2021-0 Yes Take by Uni vers (UNISOM, 5 mouth. ity of DOXYLAMINE, 13:59: [place] ) 25 mg 46 Medical tablet Branch pyridoxine 0 Yes Take by Uni vers HCl, 05-06 mouth. ity of vitamin B6, 16:19: [place] (VITAMIN 36 Medical B-6 ORAL) Branch doxylamine 0 Yes Take by Uni vers (UNISOM, 05-06 mouth. ity of DOXYLAMINE, 16:19: [place] ) 25 mg 36 Medical tablet Branch pyridoxine 0 Yes Take by [facility] HCl, 05-06 mouth. ity of vitamin B6, 16:19: [place] (VITAMIN 36 Medical B-6 ORAL) Branch doxylamine Yes Take by [facility] (UNISOM, 05-06 mouth. ity of DOXYLAMINE, 16:19: [place] ) 25 mg 36 Medical tablet Branch pyridoxine 2020-0 Yes Take by [facility] HCl, 05-06 mouth. ity of vitamin B6, 16:19: [place] (VITAMIN 36 Medical B-6 ORAL) Branch doxylamine Yes Take by [facility] (UNISOM, 05-06 mouth. ity of DOXYLAMINE, 16:19: [place] ) 25 mg 36 Medical tablet Branch pyridoxine 0 Yes Take by [facility] HCl, - mouth. ity of vitamin B6, 16:19: [place] (VITAMIN 36 Medical B-6 ORAL) Branch doxylamine Yes Take by [facility] vers (UNISOM, 05-06 mouth. ity of DOXYLAMINE, 16:19: [place] ) 25 mg 36 Medical tablet Branch pyridoxine 2020-0 Yes Take by [facility] HCl, 3- mouth. ity of vitamin B6, 16:19: [place] (VITAMIN 36 Medical B-6 ORAL) Branch doxylamine 0 Yes Take by [facility] (UNISOM, 05-06 mouth. ity of DOXYLAMINE, 16:19: [place] ) 25 mg 36 Medical tablet Branch pyridoxine 2020-0 Yes Take by [facility] vers HCl, 05-06 mouth. ity of vitamin B6, 16:19: [place] (VITAMIN 36 Medical B-6 ORAL) Branch doxylamine 0 Yes Take by [facility] vers (UNISOM, 05-06 mouth. ity of DOXYLAMINE, 16:19: [place] ) 25 mg 36 Medical tablet Branch pyridoxine 2020-0 Yes Take by [facility] HCl, 05-06 mouth. ity of vitamin B6, 16:19: [place] (VITAMIN 36 Medical B-6 ORAL) Branch doxylamine 2020-0 Yes Take by [facility] vers (UNISOM, 05-06 mouth. ity of DOXYLAMINE, 16:19: [place] ) 25 mg 36 Medical tablet Branch pyridoxine 2020-0 Yes Take by [facility] vers HCl, 05-06 mouth. ity of vitamin B6, 16:19: [place] (VITAMIN 36 Medical B-6 ORAL) Branch doxylamine 2020-0 Yes Take by [facility] vers (UNISOM, 05-06 mouth. ity of DOXYLAMINE, 16:19: [place] ) 25 mg 36 Medical tablet Branch pyridoxine 2020-0 Yes Take by [facility] vers HCl, 05-06 mouth. ity of vitamin B6, 16:19: [place] (VITAMIN 36 Medical B-6 ORAL) Branch doxylamine 2020-0 Yes Take by [facility] vers (UNISOM, 05-06 mouth. ity of DOXYLAMINE, 16:19: [place] ) 25 mg 36 Medical tablet Branch pyridoxine 2020-0 Yes Take by [facility] vers HCl, 05-06 mouth. ity of vitamin B6, 16:19: [place] (VITAMIN 36 Medical B-6 ORAL) Branch doxylamine 2020-0 Yes Take by [facility] (UNISOM, 05-06 mouth. ity of DOXYLAMINE, 16:19: [place] ) 25 mg 36 Medical tablet Branch pyridoxine 2020-0 Yes Take by [facility] vers HCl, 05-06 mouth. ity of vitamin B6, 16:19: [place] (VITAMIN 36 Medical B-6 ORAL) Branch doxylamine 2020-0 Yes Take by [facility] vers (UNISOM, 05-06 mouth. ity of DOXYLAMINE, 16:19: [place] ) 25 mg 36 Medical tablet Branch pyridoxine 2020-0 Yes Take by [facility] vers HCl, 05-06 mouth. ity of vitamin B6, 16:19: [place] (VITAMIN 36 Medical B-6 ORAL) Branch doxylamine 2020-0 Yes Take by [facility] vers (UNISOM, 05-06 mouth. ity of DOXYLAMINE, 16:19: [place] ) 25 mg 36 Medical tablet Branch pyridoxine Yes Take by [facility] vers HCl, 3 mouth. ity of vitamin B6, 16:19: [place] (VITAMIN 36 Medical B-6 ORAL) Branch doxylamine Yes Take by [facility] vers (UNISOM, 05-06 mouth. ity of DOXYLAMINE, 16:19: [place] ) 25 mg 36 Medical tablet Branch PNV 67-iron 2020- Yes [id number] 1{capsu Take 1 Univers ps-folate 2-09 le} capsule by ity of no.1-dha 00:00: mouth [place] (VITAFOL 00 daily. Medical ULTRA) 29 Branch mg iron- 1 mg-200 mg Cap PNV 67-iron 2020- Yes [id number] 1{capsu Take 1 Univers ps-folate 2-09 le} capsule by ity of no.1-dha 00:00: mouth [place] (VITAFOL 00 daily. Medical ULTRA) 29 Branch mg iron- 1 mg-200 mg Cap PNV 67-iron 2020- Yes [id number] 1{capsu Take 1 Univers ps-folate 2-09 le} capsule by ity of no.1-dha 00:00: mouth [place] (VITAFOL 00 daily. Medical ULTRA) 29 Branch mg iron- 1 mg-200 mg Cap PNV 67-iron 2020- Yes [id number] 1{capsu Take 1 Univers ps-folate 2-09 le} capsule by ity of no.1-dha 00:00: mouth [place] (VITAFOL 00 daily. Medical ULTRA) 29 Branch mg iron- 1 mg-200 mg Cap PNV 67-iron 2020- Yes [id number] 1{capsu Take 1 Univers ps-folate 2-09 le} capsule by ity of no.1-dha 00:00: mouth [place] (VITAFOL 00 daily. Medical ULTRA) 29 Branch mg iron- 1 mg-200 mg Cap PNV 67-iron 2020-0 Yes [id number] 1{capsu Take 1 Univers ps-folate 2-09 le} capsule by ity of no.1-dha 00:00: mouth [place] (VITAFOL 00 daily. Medical ULTRA) 29 Branch mg iron- 1 mg-200 mg Cap PNV 67-iron 2020-0 Yes [id number] 1{capsu Take 1 [facility] ps-folate 2-09 le} capsule by ity of no.1-dha 00:00: mouth [place] (VITAFOL 00 daily. Medical ULTRA) 29 Branch mg iron- 1 mg-200 mg Cap PNV 67-iron 2020-0 Yes [id number] 1{capsu Take 1 [facility] ps-folate 2-09 le} capsule by ity of no.1-dha 00:00: mouth [place] (VITAFOL 00 daily. Medical ULTRA) 29 Branch mg iron- 1 mg-200 mg Cap PNV 67-iron 2020-0 Yes [id number] 1{capsu Take 1 [facility] ps-folate 2-09 le} capsule by ity of no.1-dha 00:00: mouth [place] (VITAFOL 00 daily. Medical ULTRA) 29 Branch mg iron- 1 mg-200 mg Cap PNV 67-iron 2020-0 Yes [id number] 1{capsu Take 1 [facility] ps-folate 2-09 le} capsule by ity of no.1-dha 00:00: mouth [place] (VITAFOL 00 daily. Medical ULTRA) 29 Branch mg iron- 1 mg-200 mg Cap PNV 67-iron 2020-0 Yes [id number] 1{capsu Take 1 [facility] ps-folate 2-09 le} capsule by ity of no.1-dha 00:00: mouth [place] (VITAFOL 00 daily. Medical ULTRA) 29 Branch mg iron- 1 mg-200 mg Cap PNV 67-iron 2020-0 Yes [id number] 1{capsu Take 1 [facility] ps-folate 2-09 le} capsule by ity of no.1-dha 00:00: mouth [place] (VITAFOL 00 daily. Medical ULTRA) 29 Branch mg iron- 1 mg-200 mg Cap PNV 67-iron 2020-0 Yes [id number] 1{capsu Take 1 [facility] ps-folate 2-09 le} capsule by ity of no.1-dha 00:00: mouth [place] (VITAFOL 00 daily. Medical ULTRA) 29 Branch mg iron- 1 mg-200 mg Cap PNV 67-iron 2020-0 Yes [id number] 1{capsu Take 1 [facility] ps-folate 2-09 le} capsule by ity of no.1-dha 00:00: mouth [place] (VITAFOL 00 daily. Medical ULTRA) 29 Branch mg iron- 1 mg-200 mg Cap PNV 67-iron 2021-0 Yes [id number] 1{capsu Take 1 [facility] ps-folate 2-09 le} capsule by ity of no.1-dha 00:00: mouth [place] (VITAFOL 00 daily. Medical ULTRA) 29 Branch mg iron- 1 mg-200 mg Cap PNV 67-iron 2021-0 Yes [id number] 1{capsu Take 1 [facility] ps-folate 2-09 le} capsule by ity of no.1-dha 00:00: mouth [place] (VITAFOL 00 daily. Medical ULTRA) 29 Branch mg iron- 1 mg-200 mg Cap PNV 67-iron 2021-0 Yes [id number] 1{capsu Take 1 [facility] ps-folate 2-09 le} capsule by ity of no.1-dha 00:00: mouth [place] (VITAFOL 00 daily. Medical ULTRA) 29 Branch mg iron- 1 mg-200 mg Cap PNV 67-iron 2021-0 Yes [id number] 1{capsu Take 1 [facility] ps-folate 2-09 le} capsule by ity of no.1-dha 00:00: mouth [place] (VITAFOL 00 daily. Medical ULTRA) 29 Branch mg iron- 1 mg-200 mg Cap PNV 67-iron 2021-0 Yes [id number] 1{capsu Take 1 [facility] ps-folate 2-09 le} capsule by ity of no.1-dha 00:00: mouth [place] (VITAFOL 00 daily. Medical ULTRA) 29 Branch mg iron- 1 mg-200 mg Cap PNV 67-iron 2021-0 Yes [id number] 1{capsu Take 1 [facility] ps-folate 2-09 le} capsule by ity of no.1-dha 00:00: mouth [place] (VITAFOL 00 daily. Medical ULTRA) 29 Branch mg iron- 1 mg-200 mg Cap PNV 67-iron 2021-0 Yes [id number] 1{capsu Take 1 [facility] ps-folate 2-09 le} capsule by ity of no.1-dha 00:00: mouth [place] (VITAFOL 00 daily. Medical ULTRA) 29 Branch mg iron- 1 mg-200 mg Cap PNV 67-iron 2021-0 Yes [id number] 1{capsu Take 1 [facility] ps-folate 2-09 le} capsule by ity of no.1-dha 00:00: mouth [place] (VITAFOL 00 daily. Medical ULTRA) 29 Branch mg iron- 1 mg-200 mg Cap PNV 67-iron 2021-0 Yes [id number] 1{capsu Take 1 [facility] ps-folate 2-09 le} capsule by ity of no.1-dha 00:00: mouth [place] (VITAFOL 00 daily. Medical ULTRA) 29 Branch mg iron- 1 mg-200 mg Cap PNV 67-iron 2021-0 Yes [id number] 1{capsu Take 1 [facility] ps-folate 2-09 le} capsule by ity of no.1-dha 00:00: mouth [place] (VITAFOL 00 daily. Medical ULTRA) 29 Branch mg iron- 1 mg-200 mg Cap PNV 67-iron 2021-0 Yes [id number] 1{capsu Take 1 [facility] ps-folate 2-09 le} capsule by ity of no.1-dha 00:00: mouth [place] (VITAFOL 00 daily. Medical ULTRA) 29 Branch mg iron- 1 mg-200 mg Cap PNV 67-iron 2021-0 Yes [id number] 1{capsu Take 1 [facility] ps-folate 2-09 le} capsule by ity of no.1-dha 00:00: mouth [place] (VITAFOL 00 daily. Medical ULTRA) 29 Branch mg iron- 1 mg-200 mg Cap PNV 67-iron 2020-0 Yes [id number] 1{capsu Take 1 [facility] ps-folate 2-09 le} capsule by ity of no.1-dha 00:00: mouth [place] (VITAFOL 00 daily. Medical ULTRA) 29 Branch mg iron- 1 mg-200 mg Cap PNV 67-iron 2020-0 Yes [id number] 1{capsu Take 1 [facility] ps-folate 2-09 le} capsule by ity of no.1-dha 00:00: mouth [place] (VITAFOL 00 daily. Medical ULTRA) 29 Branch mg iron- 1 mg-200 mg Cap PNV 67-iron 2021-0 Yes [id number] 1{capsu Take 1 [facility] ps-folate 2-09 le} capsule by ity of no.1-dha 00:00: mouth [place] (VITAFOL 00 daily. Medical ULTRA) 29 Branch mg iron- 1 mg-200 mg Cap PNV 67-iron 2021-0 Yes [id number] 1{capsu Take 1 [facility] ps-folate 2-09 le} capsule by ity of no.1-dha 00:00: mouth [place] (VITAFOL 00 daily. Medical ULTRA) 29 Branch mg iron- 1 mg-200 mg Cap PNV 67-iron 2020-0 Yes [id number] 1{capsu Take 1 [facility] ps-folate 2-09 le} capsule by ity of no.1-dha 00:00: mouth [place] (VITAFOL 00 daily. Medical ULTRA) 29 Branch mg iron- 1 mg-200 mg Cap PNV 67-iron 2020-0 Yes [id number] 1{capsu Take 1 [facility] ps-folate 2-09 le} capsule by ity of no.1-dha 00:00: mouth [place] (VITAFOL 00 daily. Medical ULTRA) 29 Branch mg iron- 1 mg-200 mg Cap PNV 67-iron 2020-0 Yes [id number] 1{capsu Take 1 [facility] ps-folate 2-09 le} capsule by ity of no.1-dha 00:00: mouth [place] (VITAFOL 00 daily. Medical ULTRA) 29 Branch mg iron- 1 mg-200 mg Cap PNV 67-iron 2020-0 2020- No [id number] 1{capsu Take 1 [facility] ps-folate 2-09 08-31 le} capsule by ity of no.1-dha 00:00: 00:00 mouth [place] (VITAFOL 00 :00 daily. Medical ULTRA) 29 Branch mg iron- 1 mg-200 mg Cap PNV 67-iron 2020-0 2021- No [id number] 1{capsu Take 1 [facility] ps-folate 2- 08-31 le} capsule by ity of no.1-dha 00:00: 00:00 mouth [place] (VITAFOL 00 :00 daily. Medical ULTRA) 29 Branch mg iron- 1 mg-200 mg Cap PNV 67-iron 2020-0 202- No [id number] 1{capsu Take 1 [facility] ps-folate 2-09 08-31 le} capsule by ity of no.1-dha 00:00: 00:00 mouth [place] (VITAFOL 00 :00 daily. Medical ULTRA) 29 Branch mg iron- 1 mg-200 mg Cap PNV 67-iron 2020-0 2020- No [id number] 1{capsu Take 1 Univers ps-folate 2-09 08-31 le} capsule by ity of no.1-dha 00:00: 00:00 mouth [place] (VITAFOL 00 :00 daily. Medical ULTRA) 29 Branch mg iron- 1 mg-200 mg Cap proMETHazin 2020-0 Yes [id number] 25mg Take 1 Univers e 25 mg 2-01 tablet by ity of tablet 00:00: mouth [place] 00 every 4 Medical (four) Branch hours as needed for Nausea and Vomiting (N/V). proMETHazin 2020-0 Yes [id number] 25mg Take 1 Univers e 25 mg 2-01 tablet by ity of tablet 00:00: mouth [place] 00 every 4 Medical (four) Branch hours as needed for Nausea and Vomiting (N/V). proMETHazin 2020-0 Yes [id number] 25mg Take 1 Univers e 25 mg 2-01 tablet by ity of tablet 00:00: mouth [place] 00 every 4 Medical (four) Branch hours as needed for Nausea and Vomiting (N/V). proMETHazin 2020-0 Yes [id number] 25mg Take 1 [facility] e 25 mg 2-01 tablet by ity of tablet 00:00: mouth [place] 00 every 4 Medical (four) Branch hours as needed for Nausea and Vomiting (N/V). proMETHazin 2020-0 Yes [id number] 25mg Take 1 [facility] e 25 mg 2-01 tablet by ity of tablet 00:00: mouth [place] 00 every 4 Medical (four) Branch hours as needed for Nausea and Vomiting (N/V). proMETHazin 2020-0 Yes [id number] 25mg Take 1 [facility] e 25 mg 2-01 tablet by ity of tablet 00:00: mouth [place] 00 every 4 Medical (four) Branch hours as needed for Nausea and Vomiting (N/V). proMETHazin 2020-0 Yes [id number] 25mg Take 1 [facility] e 25 mg 2-01 tablet by ity of tablet 00:00: mouth [place] 00 every 4 Medical (four) Branch hours as needed for Nausea and Vomiting (N/V). proMETHazin 2020-0 Yes [id number] 25mg Take 1 Univers e 25 mg 2-01 tablet by ity of tablet 00:00: mouth [place] 00 every 4 Medical (four) Branch hours as needed for Nausea and Vomiting (N/V). proMETHazin 2020-0 Yes [id number] 25mg Take 1 Univers e 25 mg 2-01 tablet by ity of tablet 00:00: mouth [place] 00 every 4 Medical (four) Branch hours as needed for Nausea and Vomiting (N/V). proMETHazin 2020-0 Yes [id number] 25mg Take 1 Univers e 25 mg 2-01 tablet by ity of tablet 00:00: mouth [place] 00 every 4 Medical (four) Branch hours as needed for Nausea and Vomiting (N/V). proMETHazin 2020-0 Yes [id number] 25mg Take 1 Univers e 25 mg 2-01 tablet by ity of tablet 00:00: mouth [place] 00 every 4 Medical (four) Branch hours as needed for Nausea and Vomiting (N/V). proMETHazin 2020-0 Yes [id number] 25mg Take 1 Univers e 25 mg 2-01 tablet by ity of tablet 00:00: mouth [place] 00 every 4 Medical (four) Branch hours as needed for Nausea and Vomiting (N/V). proMETHazin 2020-0 Yes [id number] 25mg Take 1 Univers e 25 mg 2-01 tablet by ity of tablet 00:00: mouth [place] 00 every 4 Medical (four) Branch hours as needed for Nausea and Vomiting (N/V). proMETHazin 2020-0 Yes [id number] 25mg Take 1 Univers e 25 mg 2-01 tablet by ity of tablet 00:00: mouth [place] 00 every 4 Medical (four) Branch hours as needed for Nausea and Vomiting (N/V). proMETHazin 2020-0 Yes [id number] 25mg Take 1 [facility] e 25 mg 2-01 tablet by ity of tablet 00:00: mouth [place] 00 every 4 Medical (four) Branch hours as needed for Nausea and Vomiting (N/V). proMETHazin 2020-0 Yes [id number] 25mg Take 1 Univers e 25 mg 2-01 tablet by ity of tablet 00:00: mouth [place] 00 every 4 Medical (four) Branch hours as needed for Nausea and Vomiting (N/V). proMETHazin 2020-0 Yes [id number] 25mg Take 1 Univers e 25 mg 2-01 tablet by ity of tablet 00:00: mouth [place] 00 every 4 Medical (four) Branch hours as needed for Nausea and Vomiting (N/V). proMETHazin 2020-0 Yes [id number] 25mg Take 1 Univers e 25 mg 2-01 tablet by ity of tablet 00:00: mouth [place] 00 every 4 Medical (four) Branch hours as needed for Nausea and Vomiting (N/V). proMETHazin Yes [id number] 25mg Take 1 Univers e 25 mg 2-01 tablet by ity of tablet 00:00: mouth [place] 00 every 4 Medical (four) Branch hours as needed for Nausea and Vomiting (N/V). proMETHazin Yes [id number] 25mg Take 1 Univers e 25 mg 2-01 tablet by ity of tablet 00:00: mouth [place] 00 every 4 Medical (four) Branch hours as needed for Nausea and Vomiting (N/V). proMETHazin 2020- No [id number] 25mg Take 1 Univers e 25 mg 2-01 -24 tablet by ity of tablet 00:00: 00:00 mouth [place] 00 :00 every 4 Medical (four) Branch hours as needed for Nausea and Vomiting (N/V). azithromyci 2019-0 2020- No [id number] 1000mg Take 2 Univers n 500 mg 5-13 05-14 tablets by ity of tablet 00:00: 04:59 mouth [place] :[place] now for 1 Medical dose. Branch azithromyci 2019-0 2020- No [id number] 1000mg Take 2 Univers n 500 mg 5-13 05-14 tablets by ity of tablet 00:00: 04:59 mouth [place] 00 :[place] now for 1 Medical dose. Branch No known No [facility] medications [facility] known [facility] No known No Univers medications [facility] No [facility] No Univers medications [facility] No [facility] No [facility] No [facility] medications [facility] No known No Univers medications [facility] No [facility] No Univers medications [facility] No known No Univers medications [facility] No known No Univers medications [facility] No known No Univers medications [facility] No known No Univers medications [facility] Immunizations Ordered Filled Immunization Date Status Comments [facility] e Immunization Name Name TDAP 2020-08-29 Completed University of 00:00:[address] [facility] Branch TDAP 2020-08-29 Completed University of 00:00:00 [facility] TDAP 2020-08-29 Completed University of 00:00:00 [place] [facility] TDAP 2020-08-29 Completed University of 00:00:00 [place] [facility] [place] TDAP 2020-08-29 Completed University of 00:00:00 [facility] TDAP 2020-08-29 Completed University of 00:00:00 [place] [facility] TDAP 2020-08-29 Completed University of 00:00:[address] [facility] Branch TDAP 2020-08-29 Completed University of 00:00:00 [facility] TDAP 2020-08-29 Completed University of 00:00:00 [facility] TDAP 2020-08-29 Completed University of 00[facility]00:00 [facility] TDAP 2020-08-29 Completed University of 00[facility]00:00 [facility] TDAP 2020-08-29 Completed University of 00[facility]00:00 [facility] TDAP 2020-08-29 Completed University of 00[facility]00:00 [facility] TDAP 2020-08-29 Completed University of 00[facility]00:00 [facility] TDAP 2020-08-29 Completed University of 00[facility]00:00 [facility] TDAP 2020-08-29 Completed University of 00[facility]00:00 [facility] TDAP 2020-08-29 Completed University of 00[facility]00:00 [facility] TDAP 2020-08-29 Completed University of 00[facility]00:00 [facility] TDAP 2020-08-29 Completed University of 00[facility]00:00 [facility] TDAP 2020-08-29 Completed University of 00[facility]00:00 [facility] TDAP 2020-08-29 Completed University of 00:00:00 [facility] TDAP 2020-08-29 Completed University of 00:00:00 [facility] Influenza Virus 2020-03-21 Completed Universit y of Vaccine Quad .5 mL 00:00:[address] [facility] IM 6+ MO Branch Influenza Virus 2020-03-21 Completed Universit y of Vaccine [facility] .5 mL 00:00:00 [place] [facility] IM 6+ MO Branch Influenza Virus 2020-03-21 Completed Universit y of Vaccine Quad .5 mL 00:00:[address] [facility] IM 6+ MO Branch Influenza Virus 2020-03-21 Completed Universit y of Vaccine Quad .5 mL 00:00:00 [place] [facility] IM 6+ MO Branch Influenza Virus 2020-03-21 Completed Universit y of Vaccine Quad .5 mL 00:00:00 [place] [facility] IM 6+ MO Branch Influenza Virus 2020-03-21 Completed Universit y of Vaccine Quad .5 mL 00:00:00 [place] [facility] IM 6+ MO Branch Influenza Virus 2020-03-21 Completed Universit y of Vaccine Quad .5 mL 00:00:00 [place] [facility] IM 6+ MO Branch Influenza Virus 2020-03-21 Completed Universit y of Vaccine Quad .5 mL 00:00:00 [place] [facility] IM 6+ MO Branch Influenza Virus 2020-03-21 Completed Universit y of Vaccine Quad .5 mL 00:00:00 [place] [facility] IM 6+ MO Branch Influenza Virus 2020-03-21 Completed Universit y of Vaccine Quad .5 mL 00:00:00 [place] [facility] IM 6+ MO Branch Influenza Virus 2020-03-21 Completed Universit y of Vaccine Quad .5 mL 00:00:00 [place] [facility] IM 6+ MO Branch Influenza Virus 2020-03-21 Completed Universit y of Vaccine Quad .5 mL 00:00:00 [place] [facility] IM 6+ MO Branch Influenza Virus 2020-03-21 Completed Universit y of Vaccine Quad .5 mL 00:00:00 [place] [facility] IM 6+ MO Branch Influenza Virus 2020-03-21 Completed Universit y of Vaccine Quad .5 mL 00:00:00 [place] [facility] IM 6+ MO Branch Influenza Virus 2020-03-21 Completed Universit y of Vaccine Quad .5 mL 00:00:00 [place] [facility] IM 6+ MO Branch Influenza Virus 2020-03-21 Completed Universit y of Vaccine Quad .5 mL 00:00:00 [place] [facility] IM 6+ MO Branch Influenza Virus 2020-03-21 Completed Universit y of Vaccine Quad .5 mL 00:00:00 [place] [facility] IM 6+ MO Branch Influenza Virus 2020-03-21 Completed Universit y of Vaccine Quad .5 mL 00:00:00 [place] [facility] IM 6+ MO Branch Influenza Virus 2020-03-21 Completed Universit y of Vaccine [facility] .5 mL 00:00:00 [place] [facility] IM 6+ MO Branch Influenza Virus 2020-03-21 Completed Universit y of Vaccine [facility] .5 mL 00:00:00 [place] [facility] IM 6+ MO Branch Influenza Virus 2020-03-21 Completed Universit y of Vaccine Quad .5 mL 00:00:00 [place] [facility] IM 6+ MO Branch Influenza Virus 2020-03-21 Completed Universit y of Vaccine Quad .5 mL 00:00:00 [place] [facility] IM 6+ MO Branch Influenza Virus 2020-03-21 Completed Universit y of Vaccine [facility] .5 mL 00:00:00 [place] [facility] IM 6+ MO Branch Influenza Virus 2020-03-21 Completed Universit y of Vaccine [facility] .5 mL 00:00:00 [place] [facility] IM 6+ MO Branch Influenza Virus 2020-03-21 Completed Universit y of Vaccine Quad .5 mL 00:00:00 [place] [facility] IM 6+ MO Branch Influenza Virus 2020-03-21 Completed Universit y of Vaccine [facility] .5 mL 00:00:00 [place] [facility] IM 6+ MO Branch Influenza Virus 2020-03-21 Completed Universit y of Vaccine Quad .5 mL 00:00:00 [place] [facility] IM 6+ MO Branch Influenza Virus 2020-03-21 Completed Universit y of Vaccine Quad .5 mL 00:00:00 [place] [facility] IM 6+ MO Branch Influenza Virus 2020-03-21 Completed Universit y of Vaccine [facility] .5 mL 00:00:00 [place] [facility] IM 6+ MO Branch Influenza Virus 2020-03-21 Completed Universit y of Vaccine [facility] .5 mL 00:00:00 [place] [facility] IM 6+ MO Branch Influenza Virus 2020-03-21 Completed Universit y of Vaccine [facility] .5 mL 00:00:00 [place] [facility] IM 6+ MO Branch Influenza Virus 2020-03-21 Completed Universit y of Vaccine [facility] .5 mL 00:00:00 [place] [facility] IM 6+ MO Branch Influenza Virus 2020-03-21 Completed Universit y of Vaccine Quad .5 mL 00:00:00 [place] [facility] IM 6+ MO Branch Influenza Virus 2020-03-21 Completed Universit y of Vaccine Quad .5 mL 00:00:00 [place] [facility] IM 6+ MO Branch Influenza Virus 2020-03-21 Completed Universit y of Vaccine Quad .5 mL 00:00:00 [place] [facility] IM 6+ MO Branch Influenza Virus 2020-03-21 Completed Universit y of Vaccine Quad .5 mL 00:00:00 [place] [facility] IM 6+ MO Branch Influenza Virus 2020-03-21 Completed Universit y of Vaccine Quad .5 mL 00:00:00 [place] [facility] IM 6+ MO Branch Influenza Virus 2020-03-21 Completed Universit y of Vaccine Quad .5 mL 00:00:00 [place] [facility] IM 6+ MO Branch Influenza Virus 2020-03-21 Completed Universit y of Vaccine Quad .5 mL 00:00:00 [place] [facility] IM 6+ MO Branch Influenza Virus 2020-03-21 Completed Universit y of Vaccine Quad .5 mL 00:00:00 [place] [facility] IM 6+ MO Branch Influenza Virus 2020-03-21 Completed Universit y of Vaccine Quad .5 mL 00:00:00 [place] [facility] IM 6+ MO Branch Influenza Virus 2020-03-21 Completed Universit y of Vaccine Quad .5 mL 00:00:00 [place] [facility] IM 6+ MO Branch Influenza Virus 2020-03-21 Completed Universit y of Vaccine Quad .5 mL 00:00:00 [place] [facility] IM 6+ MO Branch Influenza Virus 2020-03-21 Completed Universit y of Vaccine Quad .5 mL 00:00:00 [place] [facility] 6+ MO Branch HPV9 2019-07-18 Completed University of 00:00:00 [place] [facility] HPV9 2019-07-18 Completed University of 00:00:00 [place] [facility] HPV9 2019-07-18 Completed University of 00:00:00 [place] [facility] HPV9 2019-07-18 Completed University of 00:00:00 [place] [facility] HPV9 2019-07-18 Completed University of 00:00:00 [place] [facility] HPV9 2019-07-18 Completed University of 00:00:00 [place] [facility] HPV9 2019-07-18 Completed University of 00:00:00 [place] [facility] HPV9 2019-07-18 Completed University of 00:00:00 [place] [facility] HPV9 2019-07-18 Completed University of 00:00:00 [place] [facility] HPV9 2019-07-18 Completed University of 00:00:00 [place] [facility] HPV9 2019-07-18 Completed University of 00:00:00 [place] [facility] HPV9 2019-07-18 Completed University of 00:00:00 [place] [facility] HPV9 2019-07-18 Completed University of 00:00:[address] [facility] Branch HPV9 2019-07-18 Completed [facility] of 00:00:00 [facility] HPV9 2019-07-18 Completed University of 00:00:00 [facility] HPV9 2019-07-18 Completed University of 00:00:00 [place] [facility] HPV9 2019-07-18 Completed University of 00:00:00 [place] [facility] HPV9 2019-07-18 Completed University of 00:00:00 [place] [facility] HPV9 2019-07-18 Completed University of 00:00:00 [place] [facility] HPV9 2019-07-18 Completed University of 00:00:00 [facility] HPV9 2019-07-18 Completed [facility] 00:00:00 [facility] HPV9 2019-07-18 Completed [facility] 00:00:00 [facility] HPV9 2019-07-18 Completed [facility] 00:00:00 [facility] HPV9 2019-07-18 Completed [facility] 00:00:00 [facility] HPV9 2019-07-18 Completed [facility] 00:00:00 [facility] HPV9 2019-07-18 Completed [facility] 00:00:00 [facility] HPV9 2019-07-18 Completed [facility] 00:00:00 [facility] HPV9 2019-07-18 Completed [facility] 00:00:00 [facility] HPV9 2019-07-18 Completed [facility] 00:00:00 [facility] HPV9 2019-07-18 Completed [facility] 00:00:00 [facility] HPV9 2019-07-18 Completed [facility] 00:00:00 [facility] HPV9 2019-07-18 Completed [facility] 00:00:00 [facility] HPV9 2019-07-18 Completed [facility] 00:00:00 [facility] HPV9 2019-07-18 Completed [facility] 00:00:00 [facility] HPV9 2019-07-18 Completed [facility] 00:00:00 [facility] HPV9 2019-07-18 Completed [facility] 00:00:00 [facility] HPV9 2019-07-18 Completed [facility] 00:00:00 [facility] HPV9 2019-07-18 Completed [facility] 00:00:00 [facility] HPV9 2019-07-18 Completed [facility] 00:00:00 [facility] HPV9 2019-07-18 Completed [facility] 00:00:00 [facility] HPV9 2019-07-18 Completed [facility] 00:00:00 [facility] HPV9 2019-07-18 Completed [facility] 00:00:00 [facility] HPV9 2019-07-18 Completed [facility] 00:00:00 [facility] HPV9 2019-07-18 Completed [facility] 00:00:00 [facility] HPV9 2019-07-18 Completed [facility] 00:00:00 [facility] HPV9 2019-07-18 Completed [facility] 00:00:00 [facility] HPV9 2019-07-18 Completed [facility] 00:00:00 [facility] HPV9 2019-07-18 Completed [facility] 00:00:00 [facility] HPV9 2019-07-18 Completed [facility] 00:00:00 [facility] HPV9 2019-07-18 Completed [facility] 00:00:00 [facility] HPV9 2019-07-18 Completed [facility] 00:00:00 [facility] HPV9 2019-07-18 Completed [facility] 00:00:00 [facility] HPV9 2017-01-05 Completed [facility] 00:00:00 [facility] HPV9 2017-01-05 Completed [facility] 00:00:00 [facility] HPV9 2017-01-05 Completed [facility] 00:00:00 [facility] HPV9 2017-01-05 Completed [facility] 00:00:00 [facility] HPV9 2017-01-05 Completed [facility] 00:00:00 [facility] HPV9 2017-01-05 Completed [facility] 00:00:00 [facility] HPV9 2017-01-05 Completed [facility] 00:00:00 [facility] HPV9 2017-01-05 Completed [facility] 00:00:00 [facility] HPV9 2017-01-05 Completed [facility] 00:00:00 [facility] HPV9 2017-01-05 Completed [facility] 00:00:00 [facility] HPV9 2017-01-05 Completed [facility] 00:00:00 [facility] HPV9 2017-01-05 Completed [facility] 00:00:00 [facility] HPV9 2017-01-05 Completed [facility] 00:00:00 [facility] HPV9 2017-01-05 Completed [facility] 00:00:00 [facility] HPV9 2017-01-05 Completed [facility] 00:00:00 [facility] HPV9 2017-01-05 Completed [facility] 00:00:00 [facility] HPV9 2017-01-05 Completed [facility] 00:00:00 [facility] HPV9 2017-01-05 Completed [facility] 00:00:00 [facility] HPV9 2017-01-05 Completed [facility] 00:00:00 [facility] HPV9 2017-01-05 Completed [facility] 00:00:00 [facility] HPV9 2017-01-05 Completed [facility] 00:00:00 [facility] HPV9 2017-01-05 Completed [facility] 00:00:00 [facility] HPV9 2017-01-05 Completed [facility] 00:00:00 [facility] HPV9 2017-01-05 Completed [facility] 00:00:00 [facility] HPV9 2017-01-05 Completed [facility] 00:00:00 [facility] HPV9 2017-01-05 Completed [facility] 00:00:00 [facility] HPV9 2017-01-05 Completed [facility] 00:00:00 [facility] HPV9 2017-01-05 Completed [facility] 00:00:00 [facility] HPV9 2017-01-05 Completed [facility] 00:00:00 [facility] HPV9 2017-01-05 Completed [facility] 00:00:00 [facility] HPV9 2017-01-05 Completed [facility] 00:00:00 [facility] HPV9 2017-01-05 Completed [facility] 00:00:00 [facility] HPV9 2017-01-05 Completed [facility] 00:00:00 [facility] HPV9 2017-01-05 Completed [facility] 00:00:00 [facility] HPV9 2017-01-05 Completed [facility] 00:00:00 [facility] HPV9 2017-01-05 Completed [facility] 00:00:00 [facility] HPV9 2017-01-05 Completed [facility] 00:00:00 [facility] HPV9 2017-01-05 Completed [facility] 00:00:00 [facility] HPV9 2017-01-05 Completed [facility] 00:00:00 [facility] HPV9 2017-01-05 Completed [facility] 00:00:00 [facility] HPV9 2017-01-05 Completed [facility] 00:00:00 [facility] HPV9 2017-01-05 Completed [facility] 00:00:00 [facility] HPV9 2017-01-05 Completed [facility] 00:00:00 [facility] HPV9 2017-01-05 Completed [facility] 00:00:00 [facility] HPV9 2017-01-05 Completed [facility] 00:00:00 [facility] HPV9 2017-01-05 Completed [facility] 00:00:00 [facility] HPV9 2017-01-05 Completed [facility] 00:00:00 [facility] HPV9 2017-01-05 Completed [facility] 00[facility]00: [facility] HPV9 2017-01-05 Completed [facility] 00:00: [facility] HPV9 2017-01-05 Completed [facility] 00:00:[address] [facility] HPV9 2017-01-05 Completed [facility] 00:00:00 [facility] HPV9 2017-01-05 Completed [facility] 00:00: [facility] HPV9 2017-01-05 Completed [facility] 00:00:00 [facility] HPV9 2017-01-05 Completed [facility] 00[facility]00:00 [facility] HPV9 2017-01-05 Completed [facility] 00[facility]00:00 [facility] HPV9 2017-01-05 Completed [facility] 00[facility]00:00 [facility] HPV9 2017-01-05 Completed [facility] 00[facility]00:00 [facility] HPV9 2017-01-05 Completed [facility] 00[facility]00:00 [facility] Influenza Virus 2015-11-27 Completed [facility]+ 00:00:00 [facility] Influenza Virus 2015-11-27 Completed [facility]+ 00:00:00 [facility] Influenza Virus 2015-11-27 Completed [facility]+ 00:00:00 [facility] Influenza Virus 2015-11-27 Completed [facility]+ 00:00:00 [facility] Influenza Virus 2015-11-27 Completed [facility]+ 00:00:00 [facility] Influenza Virus 2015-11-27 Completed [facility]+ 00:00:00 [facility] Influenza Virus 2015-11-27 Completed [facility]+ 00:00:00 [facility] Influenza Virus 2015-11-27 Completed [facility]+ 00:00:00 [facility] Influenza Virus 2015-11-27 Completed [facility]+ 00:00:00 [facility] Influenza Virus 2015-11-27 Completed [facility]+ 00:00:00 [facility] Influenza Virus 2015-11-27 Completed [facility]+ 00:00:00 [facility] Influenza Virus 2015-11-27 Completed [facility]+ 00:00:00 [facility] Influenza Virus 2015-11-27 Completed [facility]+ 00:00:00 [facility] Influenza Virus 2015-11-27 Completed [facility]+ 00:00:00 [facility] Influenza Virus 2015-11-27 Completed [facility]+ 00:00:00 [facility] Influenza Virus 2015-11-27 Completed [facility]+ 00:00:00 [facility] Influenza Virus 2015-11-27 Completed [facility]+ 00:00:00 [facility] Influenza Virus 2015-11-27 Completed [facility]+ 00:00:00 [facility] Influenza Virus 2015-11-27 Completed [facility]+ 00:00:00 [facility] Influenza Virus 2015-11-27 Completed [facility] 00:00:00 [facility] Influenza Virus 2015-11-27 Completed [facility]+ 00:00:00 [facility] Influenza Virus 2015-11-27 Completed [facility]+ 00:00:00 [facility] Influenza Virus 2015-11-27 Completed [facility]+ 00:00:00 [facility] Influenza Virus 2015-11-27 Completed [facility]+ 00:00:00 [facility] Influenza Virus 2015-11-27 Completed [facility]+ 00:00:00 [facility] Influenza Virus 2015-11-27 Completed [facility]+ 00:00:00 [facility] Influenza Virus 2015-11-27 Completed [facility]+ 00:00:00 [facility] Influenza Virus 2015-11-27 Completed [facility]+ 00:00:00 [facility] Influenza Virus 2015-11-27 Completed [facility]+ 00:00:00 [facility] Influenza Virus 2015-11-27 Completed [facility]+ 00:00:00 [facility] Influenza Virus 2015-11-27 Completed [facility]+ 00:00:00 [facility] Influenza Virus 2015-11-27 Completed [facility]+ 00:00:00 [facility] Influenza Virus 2015-11-27 Completed [facility]+ 00:00:00 [facility] Influenza Virus 2015-11-27 Completed [facility]+ 00:00:00 [facility] Influenza Virus 2015-11-27 Completed [facility]+ 00:00:00 [facility] Influenza Virus 2015-11-27 Completed [facility]+ 00:00:00 [facility] Influenza Virus 2015-11-27 Completed [facility]+ 00:00:00 [facility] Influenza Virus 2015-11-27 Completed [facility]+ 00:00:00 [facility] Influenza Virus 2015-11-27 Completed [facility]+ 00:00:00 [facility] Influenza Virus 2015-11-27 Completed [facility]+ 00:00:00 [facility] Influenza Virus 2015-11-27 Completed [facility]+ 00:00:00 [facility] Influenza Virus 2015-11-27 Completed [facility]+ 00:00:00 [facility] Influenza Virus 2015-11-27 Completed [facility]+ 00:00:00 [facility] Influenza Virus 2015-11-27 Completed [facility]+ 00:00:00 [facility] Influenza Virus 2015-11-27 Completed [facility]+ 00:00:00 [facility] Influenza Virus 2015-11-27 Completed [facility]+ 00:00:00 [facility] Influenza Virus 2015-11-27 Completed [facility]+ 00:00:00 [facility] Influenza Virus 2015-11-27 Completed [facility]+ 00:00:00 [facility] Influenza Virus 2015-11-27 Completed [facility]+ 00:00:00 [facility] Influenza Virus 2015-11-27 Completed [facility]+ 00:00:00 [facility] Influenza Virus 2015-11-27 Completed [facility]+ 00:00:00 [facility] Influenza Virus 2015-11-27 Completed [facility]+ 00:00:00 [facility] Influenza Virus 2015-11-27 Completed [facility]+ 00:00:00 [facility] Influenza Virus 2015-11-27 Completed [facility]+ 00:00:00 [facility] Influenza Virus 2015-11-27 Completed [facility]+ 00:00:00 [facility] Influenza Virus 2015-11-27 Completed [facility]+ 00:00:00 [facility] Influenza Virus 2015-11-27 Completed [facility]+ 00:00:00 [facility] Influenza Virus 2015-11-27 Completed [facility]+ 00:00:00 [facility] TDAP 2015-09-27 Completed [facility] 00:00:00 [facility] TDAP 2015-09-27 Completed [facility] 00[facility]00:00 [facility] TDAP 2015-09-27 Completed [facility] 00[facility]00:00 [facility] TDAP 2015-09-27 Completed [facility] 00[facility]00:00 [facility] TDAP 2015-09-27 Completed [facility] 00[facility]00:00 [facility] TDAP 2015-09-27 Completed [facility] 00[facility]00:00 [facility] TDAP 2015-09-27 Completed [facility] 00[facility]00:00 [facility] TDAP 2015-09-27 Completed [facility] 00[facility]00:00 [facility] TDAP 2015-09-27 Completed [facility] 00[facility]00:00 [facility] TDAP 2015-09-27 Completed [facility] 00[facility]00:00 [facility] TDAP 2015-09-27 Completed [facility] 00[facility]00:00 [facility] TDAP 2015-09-27 Completed [facility] 00[facility]00:00 [facility] TDAP 2015-09-27 Completed [facility] 00[facility]00:00 [facility] TDAP 2015-09-27 Completed [facility] 00[facility]00:00 [facility] TDAP 2015-09-27 Completed [facility] 00[facility]00:00 [facility] TDAP 2015-09-27 Completed [facility] 00:00:00 [facility] TDAP 2015-09-27 Completed [facility] 00:00:[address] [facility] Tdap 2015-09-27 Completed [facility] 00:00:00 [facility] Tdap 2015-09-27 Completed [facility] 00:00:00 [facility] Tdap 2015-09-27 Completed [facility] 00:00:[address] [facility] Tdap 2015-09-27 Completed [facility] 00:00:[address] [facility] Tdap 2015-09-27 Completed [facility] 00:00:00 [facility] Tdap 2015-09-27 Completed [facility] 00:00:00 [facility] Tdap 2015-09-27 Completed [facility] 00:00:00 [facility] Tdap 2015-09-27 Completed [facility] 00:00:00 [facility] Tdap 2015-09-27 Completed [facility] 00:00:[address] [facility] Tdap 2015-09-27 Completed [facility] 00:00:00 [facility] Tdap 2015-09-27 Completed [facility] 00:00:[address] [facility] Tdap 2015-09-27 Completed [facility] 00:00:[address] [facility] Tdap 2015-09-27 Completed [facility] 00:00:[address] [facility] TDAP 2015-09-27 Completed [facility] 00:00:[address] [facility] TDAP 2015-09-27 Completed [facility] 00:00:[address] [facility] TDAP 2015-09-27 Completed [facility] 00:00:[address] [facility] TDAP 2015-09-27 Completed [facility] 00:00:[address] [facility] TDAP 2015-09-27 Completed [facility] 00:00:[address] [facility] TDAP 2015-09-27 Completed [facility] 00:00:[address] [facility] TDAP 2015-09-27 Completed [facility] 00:00:[address] [facility] TDAP 2015-09-27 Completed [facility] 00:00:[address] [facility] TDAP 2015-09-27 Completed [facility] 00:00:[address] [facility] TDAP 2015-09-27 Completed [facility] 00:00:[address] [facility] TDAP 2015-09-27 Completed [facility] 00:00:[address] [facility] TDAP 2015-09-27 Completed [facility] 00:00:[address] [facility] TDAP 2015-09-27 Completed [facility] 00:00:[address] [facility] TDAP 2015-09-27 Completed [facility] 00:00:00 [facility] TDAP 2015-09-27 Completed [facility] 00:00:00 [facility] TDAP 2015-09-27 Completed [facility] 00[facility]00:00 [facility] TDAP 2015-09-27 Completed [facility] 00[facility]00:00 [facility] TDAP 2015-09-27 Completed [facility] 00[facility]00:00 [facility] TDAP 2015-09-27 Completed [facility] 00[facility]00:00 [facility] TDAP 2015-09-27 Completed [facility] 00[facility]00:00 [facility] TDAP 2015-09-27 Completed [facility] 00[facility]00:00 [facility] TDAP 2015-09-27 Completed [facility] 00[facility]00:00 [facility] TDAP 2015-09-27 Completed [facility] 00[facility]00:00 [facility] TDAP 2015-09-27 Completed [facility] 00[facility]00:00 [facility] TDAP 2015-09-27 Completed [facility] 00[facility]00:00 [facility] TDAP 2015-09-27 Completed [facility] 00[facility]00:00 [facility] TDAP 2015-09-27 Completed [facility] 00:00:00 [facility] TDAP 2015-09-27 Completed [facility] 00[facility]00:00 [facility] Influenza Virus 2015-05-21 Completed [facility]+ 00:00:00 [facility] Influenza Virus 2015-05-21 Completed [facility]+ 00:00:00 [facility] Influenza Virus 2015-05-21 Completed [facility] 3+ 00:00:00 [facility] Influenza Virus 2015-05-21 Completed [facility] 3+ 00:00:00 [facility] Influenza Virus 2015-05-21 Completed [facility]+ 00:00:00 [facility] Influenza Virus 2015-05-21 Completed [facility]+ 00:00:00 [facility] Influenza Virus 2015-05-21 Completed [facility]+ 00:00:00 [facility] Influenza Virus 2015-05-21 Completed [facility] 3+ 00:00:00 [facility] Influenza Virus 2015-05-21 Completed [facility]+ 00:00:00 [facility] Influenza Virus 2015-05-21 Completed [facility]+ 00:00:00 [facility] Influenza Virus 2015-05-21 Completed [facility]+ 00:00:00 [facility] Influenza Virus 2015-05-21 Completed [facility]+ 00:00:00 [facility] Influenza Virus 2015-05-21 Completed [facility]+ 00:00:00 [facility] Influenza Virus 2015-05-21 Completed [facility]+ 00:00:00 [facility] Influenza Virus 2015-05-21 Completed [facility]+ 00:00:00 [facility] Influenza Virus 2015-05-21 Completed [facility]+ 00:00:00 [facility] Influenza Virus 2015-05-21 Completed [facility]+ 00:00:00 [facility] Influenza Virus 2015-05-21 Completed [facility]+ 00:00:00 [facility] Influenza Virus 2015-05-21 Completed [facility]+ 00:00:00 [facility] Influenza Virus 2015-05-21 Completed [facility]+ 00:00:00 [facility] Influenza Virus 2015-05-21 Completed [facility]+ 00:00:00 [facility] Influenza Virus 2015-05-21 Completed [facility]+ 00:00:00 [facility] Influenza Virus 2015-05-21 Completed [facility]+ 00:00:00 [facility] Influenza Virus 2015-05-21 Completed [facility]+ 00:00:00 [facility] Influenza Virus 2015-05-21 Completed [facility]+ 00:00:00 [facility] Influenza Virus 2015-05-21 Completed [facility] 3+ 00:00:00 [facility] Influenza Virus 2015-05-21 Completed [facility] 3+ 00:00:00 [facility] Influenza Virus 2015-05-21 Completed [facility] 3+ 00:00:00 [facility] Influenza Virus 2015-05-21 Completed [facility] 3+ 00:00:00 [facility] Influenza Virus 2015-05-21 Completed [facility] 3+ 00:00:00 [facility] Influenza Virus 2015-05-21 Completed [facility] 3+ 00:00:00 [facility] Influenza Virus 2015-05-21 Completed [facility] 3+ 00:00:00 [facility] Influenza Virus 2015-05-21 Completed [facility] 3+ 00:00:00 [facility] Influenza Virus 2015-05-21 Completed [facility] 3+ 00:00:00 [facility] Influenza Virus 2015-05-21 Completed [facility]+ 00:00:00 [facility] Influenza Virus 2015-05-21 Completed [facility] 3+ 00:00:00 [facility] Influenza Virus 2015-05-21 Completed [facility] 3+ 00:00:00 [facility] Influenza Virus 2015-05-21 Completed [facility] 3+ 00:00:00 [facility] Influenza Virus 2015-05-21 Completed [facility] 3+ 00:00:00 [facility] Influenza Virus 2015-05-21 Completed [facility]+ 00:00:00 [facility] Influenza Virus 2015-05-21 Completed [facility]+ 00:00:00 [facility] Influenza Virus 2015-05-21 Completed [facility] 3+ 00:00:00 [facility] Influenza Virus 2015-05-21 Completed [facility]+ 00:00:00 [facility] Influenza Virus 2015-05-21 Completed [facility] 3+ 00[facility]00:00 [facility] Influenza Virus 2015-05-21 Completed Universit y of Vaccine [facility] IM 3+ 00:00:00 [facility] Influenza Virus 2015-05-21 Completed Universit y of Vaccine [facility] IM 3+ 00:00:00 [facility] Influenza Virus 2015-05-21 Completed Universit y of Vaccine [facility] IM 3+ 00:00:00 [facility] Influenza Virus 2015-05-21 Completed Universit y of Vaccine [facility] IM 3+ 00:00:00 [facility] Influenza Virus 2015-05-21 Completed Universit y of Vaccine [facility] IM 3+ 00:00:00 [facility] Influenza Virus 2015-05-21 Completed Universit y of Vaccine [facility] IM 3+ 00:00:00 [facility] Influenza Virus 2015-05-21 Completed Universit y of Vaccine [facility] IM 3+ 00:00:00 [facility] Influenza Virus 2015-05-21 Completed Universit y of Vaccine [facility] IM 3+ 00:00:00 [facility] Influenza Virus 2015-05-21 Completed Universit y of Vaccine [facility] IM 3+ 00:00:00 [facility] Influenza Virus 2015-05-21 Completed Universit y of Vaccine [facility] IM 3+ 00:00:00 [facility] Influenza Virus 2015-05-21 Completed Universit y of Vaccine [facility] IM 3+ 00:00:00 [facility] Influenza Virus 2015-05-21 Completed Universit y of Vaccine [facility] IM 3+ 00:00:00 [facility] Influenza Virus 2015-05-21 Completed Universit y of Vaccine [facility] IM 3+ 00:00:00 [facility] Influenza Virus 2015-05-21 Completed Universit y of Vaccine [facility] IM 3+ 00:00:00 [facility] Vital Signs Vital Name Observation Time Observation Value Comments Source Systolic blood 2020-11-06 13:00:00 124 mm[Hg] Univer sity of pressure [facility] Diastolic blood 2020-11-06 13:00:00 79 mm[Hg] Unive rsity of [facility] Heart rate 2020-11-06 13:00:00 66 /min [facility] Body temperature 2020-11-06 13:00:00 37 Abby [facility] Respiratory rate 2020-11-06 13:00:00 18 /min [facility] Oxygen saturation in 2020-11-06 13:00:00 100 /min [facility] Arterial blood by [facility] Pulse oximetry Branch Body height 2020-11-04 15:20:00 162.6 cm [facility] Body weight 2020-11-04 15:20:00 89.903 kg [facility] BMI 2020-11-04 15:20:00 34.02 kg/m2 [facility] Systolic blood 2020-10-28 21:50:00 120 mm[Hg] Univer sity of pressure [facility] Diastolic blood 2020-10-28 21:50:00 73 mm[Hg] Unive rsity of pressure [facility] Heart rate 2020-10-28 21:50:00 80 /min [facility] Body temperature 2020-10-28 21:50:00 36.89 Abby Univ ers[facility] Respiratory rate 2020-10-28 21:50:00 18 /min Univ ers[facility] Body height 2020-10-28 21:50:00 162.6 cm [facility] Body weight 2020-10-28 21:50:00 90.266 kg [facility] BMI 2020-10-28 21:50:00 34.16 kg/m2 [facility] Systolic blood 2020-10-07 20:43:00 113 mm[Hg] Univer sity of pressure [facility] Diastolic blood 2020-10-07 20:43:00 72 mm[Hg] Unive rsity of pressure [facility] Heart rate 2020-10-07 20:43:00 86 /min [facility] Body temperature 2020-10-07 20:43:00 36.83 Abby [facility] Respiratory rate 2020-10-07 20:43:00 18 /min Univ ers[facility] Body height 2020-10-07 20:43:00 162.6 cm [facility] Body weight 2020-10-07 20:43:00 87.816 kg [facility] BMI 2020-10-07 20:43:00 33.23 kg/m2 [facility] Systolic blood 2020-09-15 09:00:00 106 mm[Hg] Univer sity of pressure [facility] Diastolic blood 2020-09-15 09:00:00 73 mm[Hg] Unive rsity of pressure [facility] Heart rate 2020-09-15 09:00:00 73 /min [facility] Body temperature 2020-09-15 07:45:00 36.94 Abby [facility] Respiratory rate 2020-09-15 07:45:00 18 /min Univ ersity [facility] Body height 2020-09-15 07:45:00 162.6 cm [facility] Body weight 2020-09-15 07:45:00 87.181 kg [facility] BMI 2020-09-15 07:45:00 32.97 kg/m2 Universi ty of [facility] Oxygen saturation in 2020-09-15 07:45:00 99 /min University of Arterial blood by [facility] Pulse oximetry Branch Systolic blood 2020-09-12 16:23:00 108 mm[Hg] Univer sity of pressure [facility] Diastolic blood 2020-09-12 16:23:00 67 mm[Hg] Unive rsity of pressure [facility] Heart rate 2020-09-12 16:23:00 78 /min [facility] Body temperature 2020-09-12 16:23:00 36.[address] [facility] Respiratory rate 2020-09-12 16:23:00 18 /min Univ ersity [facility] Body height 2020-09-12 16:23:00 162.6 cm [facility] Body weight 2020-09-12 16:23:00 85.73 kg [facility] BMI 2020-09-12 16:23:00 32.44 kg/m2 [facility] Systolic blood 2020-08-29 20:05:00 106 mm[Hg] Univer sity of pressure [facility] Diastolic blood 2020-08-29 20:05:00 65 mm[Hg] Unive rsity of pressure [facility] Heart rate 2020-08-29 20:05:00 86 /min [facility] Body temperature 2020-08-29 20:05:00 36.94 Abby [facility] Respiratory rate 2020-08-29 20:05:00 18 /min Univ ers[facility] Body height 2020-08-29 20:05:00 162.6 cm [facility] Body weight 2020-08-29 20:05:00 86.183 kg [facility] BMI 2020-08-29 20:05:00 32.61 kg/m2 [facility] Systolic blood 2020-08-22 16:23:00 117 mm[Hg] Univer sity of pressure [facility] Diastolic blood 2020-08-22 16:23:00 67 mm[Hg] Unive rsity of pressure [facility] Heart rate 2020-08-22 16:23:00 78 /min [facility] Body temperature 2020-08-22 16:23:00 36.89 Abby [facility] Respiratory rate 2020-08-22 16:23:00 18 /min Univ ersity of [facility] Branch Oxygen saturation in 2020-08-22 16:23:00 99 /min University of Arterial blood by [facility] Pulse oximetry Branch Body weight 2020-08-22 16:05:00 83.008 kg [facility] Systolic blood 2020-07-30 13:59:00 111 mm[Hg] Univer sity of pressure [facility] Diastolic blood 2020-07-30 13:59:00 68 mm[Hg] Unive rsity of pressure [facility] Heart rate 2020-07-30 13:59:00 100 /min [facility] Body temperature 2020-07-30 13:59:00 36.78 Abby [facility] Respiratory rate 2020-07-30 13:59:00 16 /min Univ [facility] Body height 2020-07-30 13:59:00 162.6 cm [facility] Body weight 2020-07-30 13:59:00 86.183 kg [facility] BMI 2020-07-30 13:59:00 32.61 kg/m2 [facility] Systolic blood 2020-07-01 13:53:00 114 mm[Hg] Univer sity of pressure [facility] Diastolic blood 2020-07-01 13:53:00 77 mm[Hg] Unive rsity of pressure [facility] Heart rate 2020-07-01 13:53:00 90 /min [facility] Body temperature 2020-07-01 13:53:00 36.89 Abby [facility] Respiratory rate 2020-07-01 13:53:00 18 /min Univ [facility] Body height 2020-07-01 13:53:00 162.6 cm [facility] Body weight 2020-07-01 13:53:00 83.915 kg [facility] BMI 2020-07-01 13:53:00 31.76 kg/m2 [facility] Systolic blood 2020-06-03 14:52:00 120 mm[Hg] Univer sity of pressure [facility] Diastolic blood 2020-06-03 14:52:00 78 mm[Hg] Unive rsity of pressure [facility] Heart rate 2020-06-03 14:52:00 99 /min [facility] Body temperature 2020-06-03 14:52:00 37 Abby [facility] Respiratory rate 2020-06-03 14:52:00 18 /min Univ [facility] Body height 2020-06-03 14:52:00 162.6 cm [facility] Body weight 2020-06-03 14:52:00 83.008 kg [facility] BMI 2020-06-03 14:52:00 31.41 kg/m2 [facility] Systolic blood 2020-05-06 16:17:00 116 mm[Hg] Univer sity of pressure [facility] Diastolic blood 2020-05-06 16:17:00 76 mm[Hg] Unive rsity of pressure [facility] Heart rate 2020-05-06 16:17:00 84 /min [facility] Body temperature 2020-05-06 16:17:00 37.06 Abby [facility] Respiratory rate 2020-05-06 16:17:00 18 /min Univ [facility] Body height 2020-05-06 16:17:00 162.6 cm [facility] Body weight 2020-05-06 16:17:00 85.548 kg [facility] BMI 2020-05-06 16:17:00 32.37 kg/m2 [facility] Systolic blood 2020-05-06 16:17:00 116 mm[Hg] Univer sity of pressure [facility] Diastolic blood 2020-05-06 16:17:00 76 mm[Hg] Unive rsity of pressure [facility] Heart rate 2020-05-06 16:17:00 84 /min [facility] Body temperature 2020-05-06 16:17:00 37.06 Abby [facility] Respiratory rate 2020-05-06 16:17:00 18 /min Univ [facility]ity [facility] Body height 2020-05-06 16:17:00 162.6 cm [facility] Body weight 2020-05-06 16:17:00 85.548 kg [facility] BMI 2020-05-06 16:17:00 32.37 kg/m2 [facility] Systolic blood 2020-03-21 15:20:00 123 mm[Hg] Univer sity of pressure [facility] Diastolic blood 2020-03-21 15:20:00 83 mm[Hg] Unive rsity of pressure [facility] Heart rate 2020-03-21 15:20:00 88 /min [facility] Body temperature 2020-03-21 15:20:00 36.89 Abby [facility] Respiratory rate 2020-03-21 15:20:00 16 /min Univ [facility] Body height 2020-03-21 15:20:00 162.6 cm [facility] Body weight 2020-03-21 15:20:00 85.049 kg [facility] BMI 2020-03-21 15:20:00 32.18 kg/m2 [facility] Systolic blood 2020-03-21 15:20:00 123 mm[Hg] Univer sity of pressure [facility] Diastolic blood 2020-03-21 15:20:00 83 mm[Hg] Unive rsity of pressure [facility] Heart rate 2020-03-21 15:20:00 88 /min [facility] Body temperature 2020-03-21 15:20:00 36.89 Abby [facility] Respiratory rate 2020-03-21 15:20:00 16 /min Univ ersity [facility] Body height 2020-03-21 15:20:00 162.6 cm [facility] Body weight 2020-03-21 15:20:00 85.049 kg [facility] BMI 2020-03-21 15:20:00 32.18 kg/m2 [facility] Systolic blood 2019-07-18 13:30:00 121 mm[Hg] Univer sity of pressure [facility] Diastolic blood 2019-07-18 13:30:00 81 mm[Hg] Unive rsity of pressure [facility] Heart rate 2019-07-18 13:30:00 88 /min [facility] Body temperature 2019-07-18 13:30:00 36.89 Abby [facility] Respiratory rate 2019-07-18 13:30:00 16 /min Univ [facility] Body height 2019-07-18 13:30:00 162.6 cm [facility] Body weight 2019-07-18 13:30:00 83.717 kg [facility] BMI 2019-07-18 13:30:00 31.68 kg/m2 [facility] Systolic blood 2019-07-05 16:23:00 137 mm[Hg] Univer sity of pressure [facility] Diastolic blood 2019-07-05 16:23:00 86 mm[Hg] Unive rsity of pressure [facility] Heart rate 2019-07-05 16:23:00 110 /min [facility] Body temperature 2019-07-05 16:23:00 36.44 Abby [facility] Respiratory rate 2019-07-05 16:23:00 16 /min Univ [facility] Body height 2019-07-05 16:23:00 162.6 cm [facility] Body weight 2019-07-05 16:23:00 84.596 kg [facility] BMI 2019-07-05 16:23:00 32.01 kg/m2 [facility] Procedures Procedure Date / Time Performed Performing Clinician Sourc e CBC WITH DIFF 2020-11-05 08:36:00 Reno Ibarra [facility] [place] o f [facility] VENOUS CORD GAS 2020-11-04 19:41:00 Reno Ibarra [place] o [facility] CENTRAL NEURAXIAL 2020-11-04 18:21:29 Tai Burt [facility] BLOCK [facility] HEPATITIS B SURFACE 2020-11-04 15:36:00 Reno Ibarra [facility] ANTIGEN Medical Branch ADC OR CHRISTIE ONLY - 2020-11-04 15:36:00 Reno Ibarra [facility] RPR Medical Branch HIV 1/2 AG-AB WITH 2020-11-04 15:36:00 Reno Ibarra [facility] REFLEX Medical Branch COVID-19 (ID NOW RAPID 2020-11-04 15:36:[facility] HB ABO GROUPING 2020-11-04 15:20:00 [facility] RHO (D) IMMUNE 2020-11-04 15:20:00 Ibarra [facility] GLOBULIN [facility] >14 WEEKS US 2020-10-28 22:14:28 Viola Stiles [facility] DSU PRE-OP 2020-10-28 05:01:00 Doctor Unassigned, No [facility] POCT URINALYSIS W/O 2020-10-28 00:00:00 Viola Stiles [facility] SPECIFIC GRAVITY [facility] [place] POCT URINALYSIS W/O 2020-10-07 00:00:00 Reno Ibarra [facility] SPECIFIC GRAVITY [facility] [place] ADC CLC OR LCC ONLY - 2020-09-15 09:09:00 Maria Ines Dhaliwal [facility] WET PREP [facility] Branch NOTICE OF PRIVACY 2020-09-15 08:46:53 Doctor Unassigned, No [facility] PRACTICES Name [facility] [place] CONSENT/REFUSAL FOR 2020-09-15 07:24:06 [facility], [facility] Medical [facility] TREATMENT ASSIGNMENT OF BENEFITS 2020-09-15 07:23:48 Doctor Unassigned, No [facility] POCT URINALYSIS W/O 2020-09-12 00:00:00 [facility] VACCINE, >11 YRS, 2020-08-29 21:01:05 [facility] Medical Branch POCT URINALYSIS W/O 2020-08-29 00:00:00 Reno Ibarra [facility] ADC CLC OR LCC ONLY - 2020-08-22 16:47:00 Reno Ibarra [facility] WET [facility] Branch CONSENT/REFUSAL FOR 2020-08-22 15:50:02 Doctor Unassigned, No [facility] Medical [facility] TREATMENT L&D VISIT 2020-08-22 05:01:00 Doctor Unassigned, No [facility] (NON-DELIVERED) [facility] POCT URINALYSIS W/O 2020-07-30 14:00:00 Viola Stiles [facility] SECOND AND THIRD 2020-07-12 20:43:00 Viola Stiles [facility] TRIMESTER ULTRASOUND [facility] POCT URINALYSIS W/O 2020-07-01 00:00:00 Reno Ibarra [facility] POCT URINALYSIS W/O 2020-06-03 00:00:00 Viola Stiles [facility] <14 WEEKS US 2020-05-07 05:10:59 [facility] 2020-05-06 06:01:00 Doctor Unassigned, No [facility] ULTRASOUND [facility] POCT URINALYSIS W/O 2020-05-06 00:00:00 Viola Stiles [facility] FLU VACC ([id number]), 2020-03-21 15:37:09 Emma Morales [facility] 6+ MONTHS, IM, QUAD Medical Bran ch POCT TEST 2020-03-21 15:22:00 Emma Morales [facility] POCT URINALYSIS W/O 2020-03-21 15:22:00 Emma Morales [facility] ASSIGNMENT OF BENEFITS 2020-03-21 14:48:27 Doctor Unassigned, No [facility] GARDASIL 9 (HPV 9V) 2019-07-18 14:01:08 Becky Meloity [facility] VACCINE [facility] ASSIGNMENT OF BENEFITS 2019-07-05 16:08:40 Doctor Unassigned, No [facility] Encounters Start End Encounter Admission Attending Care Care Encounter Source Date/Time Date/Time Type Type Clinicians Facility Department ID 2021-01-06 Emergency [facility] [id number] Univers 07:19:04 ity [facility] 2021-01-06 Outpatient X [facility] ERT [id number] Univers 01:54:36 ity [facility] 2021-01-06 Emergency [facility] [id number] Univers 01:51[facility]48 [facility] 2020-12-02 2020-12-02 Outpatient Willie STILES [facility] [id number] Univers 11:00:00 11:00:00 VIOLA [id number] [facility] 2020-12-02 2020-12-02 Outpatient Willie STILES [facility] [id number] Univers 11:00:00 11:00:00 VIOLA [facility] 2020-11-08 2020-11-08 Case Ibarra [facility] [id number] Univers 00:00:00 00:00:00 Management Mikael Woodruff [id number] [id number] [phone] [address] 2020-11-07 2020-11-07 Telephone St[facility] [id number] Univers 00:00:00 00:00:00 Mikael Fabian [id number] i [id number] [phone] [place] [address] Branch [facility] 2020-11-04 2020-11-06 Hospital Ibarra Reno [facility] [id number] Univers 09:51:00 15:20:00 Encounter Mikael Fabian [id number] ity of [place] [id number] [facility] [phone] [address] 2020-11-05 2020-11-05 Anesthesia Carmel [facility] [id number] Univers 20:03:25 20:03:25 Event Tai Barrioston [id number] i ty of [place] [id number] [facility] [phone] [address] 2020-11-04 2020-11-04 Anesthesia LuinanTai [facility] [id number] Univers 12:50:00 16:23:00 Event Haley Davon Caren [id number] ity of [place] [id number] [facility] [phone] [address] 2020-11-04 2020-11-04 [employer] Specialist 2, Adc Lab [facility] [id number] Univers 08:48:42 09:03:42 Visit Reno Ibarra [id number] it[id number] [phone] De dical nal [address] [facility] 2020-11-04 2020-11-04 Outpatient R RENO IBARRA [facility] [id number] Univers 08:45:00 08:45:[id number] [facility] 2020-11-04 2020-11-04 Outpatient R STACEY RENO [facility] [id number] Univers 08:45:00 08:45:00 ity [facility] 2020-10-30 2020-10-30 Telephone Stacey Reno [facility] [id number] Univers 00:00:00 00:00:00 Mikael Fabian [id number] i [id number] [phone] De dical nal 134 [facility] 2020-10-28 2020-10-28 Routine Linsey [facility] [id number] Univers 16:26:50 16:41:50 Viola Fabian [id number] ity [id number] [phone] De dical [address] 2020-10-28 2020-10-28 Outpatient R LINSEY [facility] [id number] Univers 16:30:00 16:30:00 VIOLA [id number] ity [facility] 2020-10-28 2020-10-28 Outpatient R LINSEY [facility] [id number] Univers 16:30:00 16:30:00 [facility] 2020-10-28 2020-10-28 Orders Doctor PIÑA [id number] Univers 00:00:00 00:00:00 Only Unassigned, JIMENA [id number] ity of [facility] [id number] Shane as [phone] [address] 2020-10-23 2020-10-23 Outpatient R LINSEY [facility] [id number] Univers 16:00:00 16:00:00 VIOLA [id number] [facility] 2020-10-23 2020-10-23 Outpatient R LINSEY [facility] [id number] Univers 16:00:00 16:00:00 [facility] 2020-10-07 2020-10-07 Reno Hayes [facility] [id number] Univers 15:35:01 16:03:37 Mikael Dexter [id number] ity [id number] [phone] De dic[address] 2020-10-07 2020-10-07 Outpatient RENO TIWARI [facility] [id number] Univers 15:45:00 15:45:00 [id number] ity [facility] 2020-10-07 2020-10-07 Outpatient RENO TIWARI [facility] [id number] Univers 15:45:00 15:45:[address] [facility] 2020-09-26 2020-09-26 Outpatient R RENO IBARRA [facility] [id number] Univers 10:45:00 10:45:[id number] [facility] 2020-09-26 2020-09-26 Outpatient R IBARRA RENO [facility] [id number] Univers 10:45:00 10:45:[address] [facility] 2020-09-15 2020-09-15 [facility] Tamela Oates [facility] [id number] Univers 02:40:00 04:35:00 Encounter Dexter [id number] [id number] [phone] [address] 2020-09-12 2020-09-12 [facility] [id number] Univers 11:14:00 11:29:00 Viola Fabian [id number] ity [id number] [phone] De dic[address] 2020-09-12 2020-09-12 Outpatient R LINSEY [facility] [id number] Univers 11:15:00 11:15:00 VIOLA [id number] ity [facility] 2020-09-12 2020-09-12 Outpatient R LINSEY [facility] [id number] Univers 11:15:00 11:15:[address] [facility] 2020-09-03 2020-09-03 Telephone Reno Ibarra [facility] [id number] Univers 00:00:00 00:00:00 Cam Dexter [id number] i [id number] [phone] De dical nal [address] [place] [address] 2020-08-29 2020-08-29 Routine Stacey Reno [facility] [id number] Univers 14:11:14 15:47:24 Cam Dexter [id number] ity [id number] [phone] Me dical nal 134 [facility] 2020-08-29 2020-08-29 Outpatient R STANFORD IBARRAEN [facility] [id number] Univers 14:30:00 14:30:[id number] [facility] 2020-08-29 2020-08-29 Outpatient R RENO IBARRA [facility] [id number] Univers 14:30:00 14:30:[address] [facility] 2020-08-27 2020-08-27 Outpatient R STACEY [facility] [id number] Univers 08:00:00 08:00:[id number] [facility] 2020-08-23 2020-08-23 Outpatient R [facility] [id number] Univers 08:00:00 08:00:00 [id number] ity [facility] 2020-08-23 2020-08-23 Outpatient P [facility] [id number] Univers 08:00:00 08:00:[address] [facility] 2020-08-22 2020-08-22 [facility] 1.2.840.114 [id number] Univers 11:12:00 13:07:00 Cam Caren 350.1.13.10 i ty of [place] [phone] [facility] 083 [place] 2020-08-22 2020-08-22 Orders Doctor WANG 1.2.840.114 [id number] Univers 00:00:00 00:00:00 Only Unassigned, JIMENA 350.1.13.10 ity of [facility] 4.2.7.2.686 Shane as [phone] [facility] [address] [place] 2020-08-22 2020-08-22 Telephone IbarraReno [facility] 1.2.840.114 [id number] Univers 00:00:00 00:00:00 Cam Caren 350.1.13.10 i ty of [place] [phone] De dical nal 134 [facility] 2020-08-20 2020-08-20 Sustainable Agriculture Specialist 2, Adc Lab [facility] 1.2.840.114 [id number] Univers 08:36:00 08:51:00 Visit Reno Ibarra 350.1.13.10 ity of [place] [phone] De dical nal 353 [facility] 2020-08-20 2020-08-20 Outpatient R [facility] [id number] -20 Univers 08:30:00 08:30:[id number] [facility] 2020-08-20 2020-08-20 Outpatient R RENO IBARRA [facility] [id number] Univers 08:30:00 08:30:[address] [facility] 2020-07-30 2020-07-30 Routine Linsey [facility] 1.2.852.839 [id number] Univers 08:47:50 09:19:40 Viola Fabina 350.1.13.10 ity of Visit [place] [phone] De dical nal [address] [place] [address] 2020-07-30 2020-07-30 Outpatient R LINSEY [facility] [id number] 7Q-20 Univers 08:45:00 08:45:[address] VIOLA [id number] ity of [facility] 2020-07-30 2020-07-30 Outpatient R LINSEY [facility] [id number] Univers 08:45:00 08:45:[address] [facility] 2020-07-26 2020-07-26 Sustainable Agriculture Specialist Ultrasound, Adc [facility] 1.2 .840.114 [id number] Univers 09:03:56 09:33:56 Visit Iliana Anne 350.1.13.10 ity of [place] [phone] De dical nal [address] [place] [address] 2020-07-26 2020-07-26 Outpatient [facility] [id number] -[id number] Univers 09:00:00 09:00:00 [id number] ity of [facility] 2020-07-26 2020-07-26 Outpatient P [facility] [id number] Univers 09:00:00 09:00:[address] [facility] 2020-07-19 2020-07-19 Outpatient [facility] [id number] -20 Univers 09:30:00 09:30:[id number] [facility] 2020-07-19 2020-07-19 Outpatient R RENO IBARRA [facility] [id number] Univers 09:30:00 09:30:00 ity [facility] 2020-07-12 2020-07-12 Sustainable Agriculture Specialist Ultrasound, [facility] 1.2 .840.114 [id number] Univers 14:51:41 15:46:39 Visit Reno Ibarra 350.1.13.10 ity of [place] [phone] Me dical nal [address] [place] [address] 2020-07-12 2020-07-12 Outpatient R [facility] [id number] -20 Univers 15:00:00 15:00:[id number] [facility] 2020-07-12 2020-07-12 Outpatient R [facility] [id number] Univers 15:00:00 15:00:[address] [facility] 2020-07-05 2020-07-05 Outpatient R [facility] [id number] -20 Univers 09:00:00 09:00:[id number] [facility] 2020-07-05 2020-07-05 Outpatient R [facility] [id number] Univers 09:00:00 09:00:[address] [facility] 2020-07-01 2020-07-01 Routine Reno Ibarra [facility] 1.2.291.566 [id number] Univers 08:36:29 09:17:47 Mikael Fabian 350.1.13.10 ity of Visit [place] [phone] Me dical nal [address] [place] [address] 2020-07-01 2020-07-01 Outpatient R RENO IBARRA [facility] [id number] 7Q-20 Univers 08:45:00 08:45:00 [id number] ity [facility] 2020-07-01 2020-07-01 Outpatient R RENO IBARRA [facility] [id number] Univers 08:45:00 08:45:00 ity [facility] 2020-06-28 2020-06-28 Sustainable Agriculture Specialist Ultrasound, [facility] 1.2 .840.114 [id number] Univers 07:56:54 08:26:54 Visit Klaus Selby Dexter 350.1.13.10 ity [facility] [place].2.[place] [phone] De dical [address] 2020-06-28 2020-06-28 Outpatient R [facility] [id number] -20 Univers 08:00:00 08:00:00 [id number] ity [facility] 2020-06-28 2020-06-28 Outpatient P [facility] [id number] Univers 08:00:00 08:00:00 ity [facility] 2020-06-20 2020-06-20 Outpatient [facility] [id number] -[id number] Univers 08:00:00 08:00:00 [id number] ity [facility] 2020-06-13 2020-06-13 Sustainable Agriculture Specialist Ultrasound, [facility] 1.2 .840.114 [id number] Univers 07:56:55 08:26:55 Visit Reyna Carmona [place]RECKER 350.1. 13.10 ity [facility] 4.2.7.2.686 Shane as MATERNAL [phone] Med ical & CHILD [address] [place] [address] 2020-06-13 2020-06-13 Outpatient R [facility] [id number] -20 Univers 08:00:00 08:00:00 [id number] ity [facility] 2020-06-13 2020-06-13 Outpatient P [facility] [id number] Univers 08:00:00 08:00:00 ity [facility] 2020-06-06 2020-06-06 Outpatient R [facility] [id number] -20 Univers 08:00:00 08:00:[id number] [facility] 2020-06-06 2020-06-06 Outpatient P [facility] [id number] Univers 08:00:00 08:00:00 ity [facility] 2020-06-04 2020-06-04 Telephone Linsey [facility] 1.2.840.114 [id number] Univers 00:00:00 00:00:00 Viola Fabian 350.1.13.10 i ty of [place] [phone] De dical nal 134 [facility] 2020-06-03 2020-06-03 Sustainable Agriculture Specialist 2, Adc Lab [facility] 1.2.840.114 [id number] Univers 10:31:03 10:46:03 Visit Reno Ibarra 350.1.13.10 ity of [place] [phone] De dical nal 353 [facility] 2020-06-03 2020-06-03 [facility] 1.2.865.961 [id number] Univers 09:29:44 10:16:37 Viola Fabian 350.1.13.10 ity of Visit [place] [phone] De dical nal [address] [place] [address] 2020-06-03 2020-06-03 Outpatient R LINSEY [facility] [id number] 7Q-20 Univers 09:30:00 09:30:00 VIOLA [id number] ity [facility] 2020-06-03 2020-06-03 Outpatient R LINSEY [facility] [id number] Univers 09:30:00 09:30:00 [facility] 2020-05-29 2020-05-29 Telephone [facility] 1.2.840.114 [id number] Univers 00:00:00 00:00:00 Viola Fabian 350.1.13.10 i ty of [place] [phone] [address] 2020-05-28 2020-05-28 Patient Sidney [facility] 1.2.840.114 [id number] Univers 00:00:00 00:00:00 Outreach Eric PRIMARY 350.1.13.10 i ty of [facility] [place].2.7.2.[place] [phone] [address] 2020-05-22 2020-05-22 Outpatient R [facility] [id number] -[id number] Univers 14:30:00 14:30:00 [id number] [facility] 2020-05-21 2020-05-21 Telephone [facility] 1.2.840.114 [id number] Univers 00:00:00 00:00:00 Cam Dexter 350.1.13.10 i ty of [place] [phone] [address] 2020-05-14 2020-05-14 [facility] [id number] Univers 09:00:00 09:00:00 [facility] 2020-05-06 2020-05-06 Initial [facility] 1.2.585.419 [id number] 09:56:43 11:24:52 Cam Dexter 350.1.13.10 Visit [place] 4.2.7.2.686 Professio [phone] [address] 2020-05-06 2020-05-06 Initial Reno Ibarra [facility] 1.2.486.199 [id number] Univers 09:56:43 11:24:52 Cam Dexter 350.1.13.10 ity of Visit [place] [phone] [address] 2020-05-06 2020-05-06 Outpatient R RENO IBARRA [facility] [id number] 7Q-20 Univers 10:00:00 10:00:00 [id number] [facility] 2020-05-06 2020-05-06 Outpatient R [facility] [id number] Univers 10:00:00 10:00:00 ity [facility] 2020-05-06 2020-05-06 Orders Doctor WANG 1.2.840.114 [id number] Univers 00:00:00 00:00:00 Only Unassigned, JIMENA 350.1.13.10 ity of [facility] 4.2.7.2.686 Shane as [phone] [address] 2020-04-17 2020-04-17 Telephone [facility] 1.2.840.114 [id number] 00:00:00 00:00:00 Becky C [place]RECK[place] 350.1.13.10 [facility] 4.2.7.2.686 MATERNAL [phone] & [address] 2020-04-17 2020-04-17 Telephone [facility] 1.2.840.114 [id number] Univers 00:00:00 00:00:00 Becky C CAR WRECKER 350.1.13.10 ity of [facility] 4.2.7.2.686 Shane as MATERNAL [phone] [facility] & CHILD [address] [place] [address] 2020-04-16 2020-04-16 Outpatient Willie MORALES [facility] [id number] 7Q-20 Univers 09:00:00 09:00:00 EMMA [id number] [facility] 2020-04-16 2020-04-16 Outpatient Willie MORALES [facility] [id number] Univers 09:00:00 09:00:00 EMMA [facility] 2020-04-08 2020-04-08 Telephone [facility] 1.2.840.114 [id number] Univers 00:00:00 00:00:00 Becky C CAR WRECKER 350.1.13.10 ity of [facility] 4.2.7.2.686 Shane as MATERNAL [phone] [facility] & CHILD [address] [place] [address] 2020-04-08 2020-04-08 Telephone [facility] 1.2.840.114 [id number] 00:00:00 00:00:00 Becky C [place] 350.1.13.10 [facility] 4.2.7.2.686 MATERNAL [phone] & CHILD 107 [facility] 2020-04-04 2020-04-04 Outpatient R [facility] [id number] -[id number] Univers 14:15:00 14:15:00 [id number] ity [facility] 2020-04-04 2020-04-04 Outpatient R AKINSIPE, [facility] [id number] Univers 14:15:00 14:15:00 BECKY ity o f [facility] 2020-03-28 2020-03-28 Outpatient R [facility] [id number] -[id number] Univers 14:45:00 14:45:00 [id number] ity [facility] 2020-03-28 2020-03-28 Outpatient R [facility] [id number] Univers 14:45:00 14:45:00 ity [facility] 2020-03-26 2020-03-26 Telephone FREDI Morales 1.2.840.114 [id number] Univers 00:00:00 00:00:00 Emma N CAR WRECKER 350.1.13.10 it y of [facility] 4.2.7.2.686 Shane as MATERNAL [phone] Med ical & CHILD [address] [place] [address] 2020-03-26 2020-03-26 Telephone FREDI Morales 1.2.840.114 [id number] 00:00:00 00:00:00 Emma N [place] WRECKER 350.1.13.10 [place] 4.2.7.2.686 MATERNAL [phone] & [place]ILD [address] [place] [address] 2020-03-21 2020-03-21 Initial FREDI Morales 1.2.984.166 [id number] Univers 09:06:48 10:00:50 Emma N CAR WRECKER 350.1.13.10 i ty of Visit [facility] 4.2.7.2.686 Shane as MATERNAL [phone] Med ical & CHILD [address] [place] [address] 2020-03-21 2020-03-21 Initial FREDI Morales 1.2.919.919 [id number] 09:06:48 10:00:50 Emma N CAR WRECKER 350.1.13.10 Visit REGIONAL 4.2.7.2.686 MATERNAL [phone] & [place]ILD [address] [place] [address] 2020-03-21 2020-03-21 Outpatient [facility] [id number] -[id number] Univers 08:30:00 08:30:00 [id number] ity [facility] 2020-03-21 2020-03-21 Outpatient R KAMERON, [facility] [id number] Univers 08:30:00 08:30:[address] [facility] 2020-03-21 2020-03-21 Orders Doctor WANG 1.2.840.114 [id number] Univers 00:00:00 00:00:00 Only Unassigned, JIMENA 350.1.13.10 ity [facility] 4.2.7.2.686 Shane as [phone] [address] 2020-03-21 2020-03-21 Orders Doctor WANG 1.2.840.114 [id number] 00:00:00 00:00:00 Only Unassigned, JIMENA 350.1.13.10 [facility] 4.2.7.2.686 [phone] [facility] 2020-02-06 2020-02-06 Outpatient R VALENCIA, [facility] [id number] -[id number] Univers 07:45:00 07:45:00 JENNIFER ity o [facility] 2019-11-20 2019-11-20 Outpatient R [facility] [id number] -[id number] Univers 08:30:00 08:30:00 [id number] ity [facility] 2019-11-20 2019-11-20 Outpatient R [facility] [id number] Univers 08:30:00 08:30:00 ity [facility] 2019-10-11 2019-10-11 Outpatient R [facility] [id number] -[id number] Univers 08:30:00 08:30:00 [facility] 2019-10-11 2019-10-11 Outpatient R KAMERON, [facility] [id number] Univers 08:30:00 08:30:00 BECKY urrutia o f [facility] 2019-07-28 2019-07-28 Telephone [facility] 1.2.840.114 [id number] Univers 00:00:00 00:00:00 Becky C CAR WRECKER 350.1.13.10 ity of [facility] 4.2.7.2.686 Shane as MATERNAL [phone] [facility] ical & CHILD 107 [facility] 2019-07-28 2019-07-28 Telephone Akinsipe, [facility] 1.2.840.114 [id number] 00:00:00 00:00:00 Becky C CAR WRECKER 350.1.13.10 [facility] 4.2.7.2.686 MATERNAL [phone] & [place]ILD [address] [place] [address] 2019-07-26 2019-07-26 Telephone Akinsipe, [facility] 1.2.840.114 75 [id number] [facility] 00:00:00 00:00:00 Becky C CAR WRECKER 350.1.13.10 ity of [place] 4.2.7.2.686 Shane as MATERNAL [id number] [facility] ical & CHILD [address] [place] [address] 2019-07-26 2019-07-26 Telephone Akinsipe, [facility] 1.2.840.114 75 [id number] 00:00:00 00:00:00 Becky C CAR WRECKER 350.1.13.10 [place] 4.2.7.2.686 MATERNAL [id number] & [place]ILD [address] [place] [address] 2019-07-20 2019-07-20 Telephone Akinsipe, [facility] 1.2.840.114 [id number] 00:00:00 00:00:00 Becky C CAR WRECKER 350.1.13.10 [facility] 4.2.7.2.686 MATERNAL [phone] & CHILD 107 [facility] 2019-07-20 2019-07-20 Telephone Akinsipe, [facility] 1.2.840.114 [id number] [facility] 00:00:00 00:00:00 Becky C CAR WRECKER 350.1.13.10 ity of [facility] 4.2.7.2.686 Shane as MATERNAL [id number] [facility] ical & CHILD [address] [place] [address] 2019-07-19 2019-07-19 Telephone Akinsipe, [facility] 1.2.840.114 [id number] 00:00:00 00:00:00 Becky C CAR WRECKER 350.1.13.10 [facility] 4.2.7.2.686 MATERNAL [id number] & CHILD [address] [place] [address] 2019-07-19 2019-07-19 [facility] 1.2.840.114 [id number] Univers 00:00:00 00:00:00 Becky C CAR WRECKER 350.1.13.10 ity of REGIONAL 4.2.7.2.686 Shane as MATERNAL [phone] [facility] & CHILD [address] [place] [address] 2019-07-18 2019-07-18 [facility] 1.2.555.899 [id number] Univers 08:21:22 09:09:08 Visit Becky C CAR WRECKER 350.1.13.10 ity of [facility] 4.2.7.2.686 Shane as MATERNAL [phone] [facility] & [address] 2019-07-18 2019-07-18 Outpatient R AKINCORINEPE, [facility] [id number] 7Q-20 Univers 08:15:00 08:15:00 BECKY [id number] ghada o [facility] 2019-07-18 2019-07-18 Outpatient R PACOPE, [facility] [id number] Univers 08:15:00 08:15:00 BECKY urrutia o [facility] 2019-07-05 2019-07-05 Office [facility] 1.2.846.372 [id number] Univers 11:22:40 11:49:10 Visit Becky C CAR WRECKER 350.1.13.10 ity of [facility] 4.2.7.2.686 Shane as MATERNAL [phone] [facility] & CHILD [address] [place] [address] 2019-07-05 2019-07-05 Outpatient R AKINCORINEPE, [facility] [id number] 7Q-20 Univers 11:00:00 11:00:00 BECKY [id number] ity o [facility] 2019-07-05 2019-07-05 Outpatient R AKINSIPE, [facility] [id number] Univers 11:00:00 11:00:00 BECKY itmariano o [facility] 2019-07-05 2019-07-05 Orders Doctor WANG 1.2.840.114 [id number] Univers 00:00:00 00:00:00 Only Unassigned, JIMENA 350.1.13.10 ity of [facility] 4.2.7.2.686 Shane as [phone] [address] 2019-07-04 2019-07-04 Telephone Kameron, [facility] 1.2.840.114 [id number] Univers 00:00:00 00:00:00 Becky Upton CAR WRECKER 350.1.13.10 ity of [facility] 4.2.7.2.686 Shane as MATERNAL [phone] Med ical & CHILD 107 [facility] Results Test Description Test Time Test Comments Results Result Comments Source CBC with Differential 2020-11-05 10:12:10 Test Item Value Reference Range Interpretation Comme nts WBC (test code = 6690-2) See_Comment [A utomated message] The system which [employer] nerated this result transmit rosina reference range: 4.30 - 1 1.10 10*3/?L. The reference r jenaro was not used to interpr et this result as normal/abnor mal. RBC (test code = 789-8) See_Comment [Au tomated message] The system which [employer] nerated this result transmit rosina reference range: 3.93 - 5 .25 10*6/?L. The reference r jenaro was not used to interpr et this result as normal/abnor mal. HGB (test code = 718-7) 12.1 g/dL 11.6-15.0 HCT (test code = 4544-3) 36.3 % 35.7-45.2 MCV (test code = 787-2) 85.2 fL 80.6-95.5 MCH (test code = 785-6) 28.4 pg 25.9-32.8 MCHC (test code = 786-4) 33.3 g/dL 31.6-35.1 RDW-SD (test code = 42696-8) 40.6 fL 39.0-49.9 RDW-CV (test code = 788-0) 13.2 % 12.0-15.5 PLT (test code = 777-3) See_Comment [Au tomated message] The system which ge nerated this result transmit rosina reference range: 166 - 35 8 10*3/?L. The reference range was not used to interpret th is result as normal/abnormal . MPV (test code = 64798-7) 9.9 fL 9.5-12.9 NRBC/100 WBC (test code = See_Comment [ Automated message] The [id number]) system which ge nerated this result transmit rosina reference range: 0.0 - 10 .0 /100 WBCs. The reference r jenaro was not used to interpr et this result as normal/abnor mal. NRBC x10^3 (test code = <0.01 See_Comment [Au tomated message] The 5712804460) system which ge nerated this result transmit rosina reference range: 10*3/?L. The reference range was not u sed to interpret this result as normal/abnormal . GRAN MAT (NEUT) % (test code 67.6 % = 770-8) IMM GRAN % (test code = 1.40 % 7250525777) LYMPH % (test code = 736-9) 23.0 % MONO % (test code = 5905-5) 7.0 % EOS % (test code = 713-8) 0.8 % BASO % (test code = 706-2) 0.2 % GRAN MAT x10^3(ANC) (test 6.99 10*3/uL 1.88-7.09 code = 5807567707) IMM GRAN x10^3 (test code = 0.14 10*3/uL 0.00-0.06 H [id number]) LYMPH x10^3 (test code = 2.37 10*3/uL 1.32-3.29 731-0) MONO x10^3 (test code = 0.72 10*3/uL 0.33-0.92 742-7) EOS x10^3 (test code = 0.08 10*3/uL 0.03-0.39 711-2) BASO x10^3 (test code = <0.03 0.01-0.07 704-7) Lab Interpretation (test Abnormal code = 89084-9) [facility] with [id number] 10:12:10 Test Item Value Reference Range Interpretation Comments WBC (test code = See_Comment [Automated 6690-2) message] The sy stem which generated this result transmitted reference range : 4.30 - 11.10 10*3/?L. The reference range was not used to interpret this result as normal/abnormal . RBC (test code = See_Comment [Automated 789-8) message] The sy stem which generated this result transmitted reference range : 3.93 - 5.25 10*6/?L. The reference range was not used to interpret this result as normal/abnormal . HGB (test code = 12.1 g/dL 11.6-15.0 718-7) HCT (test code = 36.3 % 35.7-45.2 4544-3) MCV (test code = 85.2 fL 80.6-95.5 787-2) MCH (test code = 28.4 pg 25.9-32.8 785-6) MCHC (test code = 33.3 g/dL 31.6-35.1 786-4) RDW-SD (test code = 40.6 fL 39.0-49.9 81430-8) RDW-CV (test code = 13.2 % 12.0-15.5 788-0) PLT (test code = See_Comment [Automated 777-3) message] The sy stem which generated this result transmitted reference range : 166 - 358 10*3/ ?L. The reference r jenaro was not used to interpret this result as normal/abnormal . MPV (test code = 9.9 fL 9.5-12.9 37783-0) NRBC/100 WBC (test See_Comment [Automat ed code = 3744314479) message] The system which generated this result transmitted reference range : 0.0 - 10.0 /100 WBCs. The refer ence range was not u sed to interpret th is result as normal/abnormal . NRBC x10^3 (test code <0.01 See_Comment [Auto mated = 6006419870) message] The s ystem which generated this result transmitted reference range : 10*3/?L. The reference range was not used to interpret this result as normal/abnormal . GRAN MAT (NEUT) % 67.6 % (test code = 770-8) IMM GRAN % (test code 1.40 % = 4308671289) LYMPH % (test code = 23.0 % 736-9) MONO % (test code = 7.0 % 5905-5) EOS % (test code = 0.8 % 713-8) BASO % (test code = 0.2 % 706-2) GRAN MAT x10^3(ANC) 6.99 10*3/uL 1.88-7.09 (test code = 6771351224) IMM GRAN x10^3 (test 0.14 10*3/uL 0.00-0.06 H code = 1347231923) LYMPH x10^3 (test code 2.37 10*3/uL 1.32-3.29 = 731-0) MONO x10^3 (test code 0.72 10*3/uL 0.33-0.92 = 742-7) EOS x10^3 (test code = 0.08 10*3/uL 0.03-0.39 711-2) BASO x10^3 (test code <0.03 0.01-0.07 = 704-7) Lab Interpretation Abnormal (test code = 97791-8) [facility] OR [facility]STIE ONLY - [id number] 07:38:55 Test Item Value Reference Range Interpretation Comments RPR (Qualitative) (test code = Nonreactive Nonreactive 61481-0) Lab Interpretation (test code = Normal 70399-2) [facility] OR [facility]STIE ONLY - [id number] 07:38:55 Test Item Value Reference Range Interpretation Comments RPR (Qualitative) (test code = Nonreactive Nonreactive 26215-3) Lab Interpretation (test code = Normal 34360-2) [facility] (D) IMMUNE [id number] 21:56:43 Test Item Value Reference Range Interpretation Comments RHIG CANDIDATE? No- see comment Patient i s not a (test code = candidate for R hIg- 5055) Patient is Rh Positive.Perfor med at [facility] Laboratory Services - [facility] Blood [address] [place] [id number] Free: [phone] A No. [id number] [facility] (D) IMMUNE [id number] 21:56:43 Test Item Value Reference Range Interpretation Comments RHIG CANDIDATE? No- see comment Patient i s not a (test code = candidate for R hIg- 5055) Patient is Rh Positive.Perfor med at [facility] Laboratory Services - [facility] Blood [address] [place] [id number] Free: [phone] A No. [id number] [facility] Surface [id number] 21:24:46 Test Item Value Reference Range Interpretation Comments HBsAg Semi-Quantitative (test code = Negative Negative 5195-3) [facility] B Surface [id number] 21:24:46 Test Item Value Reference Range Interpretation Comments HBsAg Semi-Quantitative (test code = Negative Negative 5195-3) [facility] [id number] 19:54:07 Test Item Value Reference Range Interpretation Comments BASE EXCESS, CORD mEq/L (test code = 0984474935) AC PH, CORD (BEAKER) 7.18-7.38 (test code = 0614586691) PC02, CORD (test code See_Comment [Auto mated message] The = [id number]) system which g enerated this result transmit rosina reference range : 32 - 66 mmHg. The refer ence range was not used to interpret this result as normal/abnormal . PO2, CORD (test code See_Comment [Autom ated message] The = 6259560431) system which g enerated this result transmit rosina reference range : 10 - 30 mmHg. The refer ence range was not used to interpret this result as normal/abnormal . BICARBONATE, CORD See_Comment [Automate d message] The (test code = system which ge nerated this 5917861855) result transmit rosina reference range : 17 - 27 mEq/L. The refe rence range was not used to interpret this result as normal/abnormal . [facility] Cord [id number] 19:54:07 Test Item Value Reference Range Interpretation Comments BASE EXCESS, CORD mEq/L (test code = 3047333994) AC PH, CORD (BEAKER) 7.18-7.38 (test code = 8924630145) PC02, CORD (test code See_Comment [Auto mated message] The = 3981537041) system which g enerated this result transmit rosina reference range : 32 - 66 mmHg. The refer ence range was not used to interpret this result as normal/abnormal . PO2, CORD (test code See_Comment [Autom ated message] The = 3518871623) system which g enerated this result transmit rosina reference range : 10 - 30 mmHg. The refer ence range was not used to interpret this result as normal/abnormal . BICARBONATE, CORD See_Comment [Automate d message] The (test code = system which ge nerated this 1358954872) result transmit rosina reference range : 17 - 27 mEq/L. The refe rence range was not used to interpret this result as normal/abnormal . [facility] Cord [id number] 19:51:43 Test Item Value Reference Range Interpretation Comments VENOUS BASE EXCESS, mEq/L CORD (test code = 8089700568) VENOUS PH, CORD (test 7.25-7.45 code = 6579416662) VENOUS PC02, CORD See_Comment [Automate d message] The (test code = system which ge nerated 2570737719) this result tra nsmitted reference range : 27 - 49 mmHg. The refer ence range was not used to interpret this result as normal/abnormal . VENOUS PO2, CORD (test See_Comment [Aut omated message] The code = 7446813378) system [facility] generated this result tra nsmitted reference range : 17 - 41 mmHg. The refer ence range was not used to interpret this result as normal/abnormal . VENOUS BICARBONATE, See_Comment [Automa rosina message] The CORD (test code = system [facility] generated 8091382629) this result tra nsmitted reference range : 12 - 29 mEq/L. The refe rence range was not used to interpret this result as normal/abnormal . [facility] Cord [id number] 19:51:43 Test Item Value Reference Range Interpretation Comments VENOUS BASE EXCESS, mEq/L CORD (test code = 6150399261) VENOUS PH, CORD (test 7.25-7.45 code = 8467203194) VENOUS PC02, CORD See_Comment [Automate d message] The (test code = system which ge nerated 2970577395) this result tra nsmitted reference range : 27 - 49 mmHg. The refer ence range was not used to interpret this result as normal/abnormal . VENOUS PO2, CORD (test See_Comment [Aut omated message] The code = 3645057819) system [facility] generated this result tra nsmitted reference range : 17 - 41 mmHg. The refer ence range was not used to interpret this result as normal/abnormal . VENOUS BICARBONATE, See_Comment [Automa rosina message] The CORD (test code = system whi ch generated 5213337258) this result tra nsmitted reference range : 12 - 29 mEq/L. The refe rence range was not used to interpret this result as normal/abnormal . [facility] [id number] 18:21:29 Davon De Leon MD ? ? 11/04/2020 ?2:10 PM Central Neuraxial Block Performed by: Tai Burt CRNAAuthorized by: Davon De Leon MD Patient Location: OBStaff: ?Anesthesiologist: Davon De Leon MD ?Resident/SAP TRAINER: Tai Burt CRNA ?Performed by: resident/DAXAPreanesthetic Checklist: patient identified, IV checked, risks and benefits explained, monitors and equipment checked, timeout performed, ob surgical consent/approval, pre-op evaluation, surgical consent, site marked and anesthesia consentProcedure: ?Type of Neuraxial: Continuous and Epidural ?Patient Position: sitting ?Prep: Betadine and patient draped ? ?Monitoring: heart rate, residential monitor / EKG, continuous pulse ox, NIBP and heart rate / toco ?Location: lumbar (1-5) ?Lumbar: L4- L5 ?Approach: midline ? ?Technique:TEO airEpidural/Spinal [place] and/or Catheter: ?Epidural/Spinal Kit: BBraun ?Needle Type: Tuohy ?Needle Gauge: 17 G ?Needle Length: 3.5 in (8.89 cm) ?Needle Insertion Depth: 6 ?Catheter Type: side hole and multiport ? ?Catheter Size: 19 G ? ?Catheter at Skin Depth: 12 ?Number of Attempts: 1 ?Test Dose: lidocaine 1.5% with epinephrine 1-to-200,000 and negative ? ?Dose: 5 cc ? ?Catheter SecurementMethod: clear occlusive dressing, liquid medical adhesive and TegadermAssessment: ?Sensory Level: below T10 ?Block Outcome: pain improved ? ?Procedure Assessment: patient tolerated procedure well withno complicationsNotes: ? Epidural placed without incident. Negative test dose. Pt tolerated procedure well. No complications noted.[facility]urtB[facility] [id number] 18:21:29 Davon De Leon MD ? ? 11/04/2020 ?2:10 PM Central Neuraxial Block Performed by: Tai Burt CRNAAuthorized by: Davon De Leon MD Patient Location: OBStaff: ?Anesthesiologist: Davon De Leon MD ?Resident/SAP TRAINER: Tai Burt CRNA ?Performed by: resident/DAXAPreanesthetic Checklist: patient identified, IV checked, risks and benefits explained, monitors and equipment checked, timeout performed, ob surgical consent/approval, pre-op evaluation, surgical consent, site marked and anesthesia consentProcedure: ?Type of Neuraxial: Continuous and Epidural ?Patient Position: sitting ?Prep: Betadine and patient draped ? ?Monitoring: heart rate, residential monitor / EKG, continuous pulse ox, NIBP and heart rate / toco ?Location: lumbar (1-5) ?Lumbar: L4- L5 ?Approach: midline ? ?Technique:TEO airEpidural/Spinal [place] and/or Catheter: ?Epidural/Spinal Kit: BBun ?Needle Type: Tuohy ?Needle Gauge: 17 G ?Needle Length: 3.5 in (8.89 cm) ?Needle Insertion Depth: 6 ?Catheter Type: side hole and multiport ? ?Catheter Size: 19 G ? ?Catheter at Skin Depth: 12 ?Number of Attempts: 1 ?Test Dose: lidocaine 1.5% with epinephrine 1-to-200,000 and negative ? ?Dose: 5 cc ? ?Catheter SecurementMethod: clear occlusive dressing, liquid medical adhesive and TegadermAssessment: ?Sensory Level: below T10 ?Block Outcome: pain improved ? ?Procedure Assessment: patient tolerated procedure well withno complicationsNotes: ? Epidural placed without incident. Negative test dose. Pt tolerated procedure well. No complications noted.David BurtB[facility] BrenhamHIV 1/2 AG-AB WITH [id number] 17:15:03 Test Item Value Reference Range Interpretation Comments HIV Negative Negative Semi-quantitative (test code = 98659-3) CANDIDA (test code = Non-reactive for HIV-1 CANDIDA) antigen and HIV-1/HIV-2 antibodies. ?No laboratory evidence of HIV infection. ?Repeat in 2-4 weeks if acute HIV infection is suspected. [facility]-AB WITH [id number] 17:15:03 Test Item Value Reference Range Interpretation Comments HIV Negative Negative Semi-quantitative (test code = 59805-4) CANDIDA (test code = Non-reactive for HIV-1 CANDIDA) antigen and HIV-1/HIV-2 antibodies. ?No laboratory evidence of HIV infection. ?Repeat in 2-4 weeks if acute HIV infection is suspected. [facility] and Screen - ONCE [id number] 16:37:41 Test Item Value Reference Range Interpretation Comments ABO & RH (test code A Positive Performe d at [facility] = 20) Laboratory [facility] [place] [address] Free: [phone] A No. [id number] IAT (test code = Negative Performed a t [facility] 1185) Laboratory [facility] [place], [place] [address]Toll Free: [phone] A No. [id number] [facility] Screen - ONCE [id number] 16:37:41 Test Item Value Reference Range Interpretation Comments ABO & RH (test code A Positive Performe d at [facility] = 20) Laboratory [facility] [place], [place] [address]Toll Free: [phone] A No. [id number] IAT (test code = Negative Performed a t [facility] 1185) Laboratory [facility] [place], [place] [address]Toll Free: [phone] A No. [id number] [facility] (ID NOW RAPID TESTING)2020-11-04 16:04:38 Test Item Value Reference Range Interpretation Comments SARS-CoV-2 Rapid ID NOW Not Detected Not Detected (test code = 88711-9) CANDIDA (test code = CANDIDA) ID NOW COVID-19 Assay is an isothermal nucleic acid amplification test intended for the qualitative detection of nucleic acid from SARS-CoV-2 viral RNA in nasopharyngeal (CREW CALLER) specimens. It is used under Emergency Use Authorization (EUA) by FDA. The limit of detection (LOD) of the assay is 125 Genome Equivalents/mL. A positive result is indicative of the presence of SARS-CoV-2 RNA. ?Clinical correlation with patient history and other diagnostic information is necessary to determine patient infection status. A negative (Not Detected) result does not preclude SARS-CoV-2 infection. In patients with clinical symptoms and other tests that are consistent with SARS-CoV-2 infection, negative results should be treated as presumptive negative and a new specimen should be tested with alternative PCR molecular test. Invalid: Please collect a new specimen for repeat patient testing if clinically indicated. Lab Interpretation Normal (test code = 14142-8) [facility] ([facility] NOW RAPID TESTING)2020-11-04 16:04:38 Test Item Value Reference Range Interpretation Comments SARS-CoV-2 Rapid ID NOW Not Detected Not Detected (test code = 98726-5) CANDIDA (test code = CANDIDA) ID NOW COVID-19 Assay is an isothermal nucleic acid amplification test intended for the qualitative detection of nucleic acid from SARS-CoV-2 viral RNA in nasopharyngeal (CREW CALLER) specimens. It is used under Emergency Use Authorization (EUA) by FDA. The limit of detection (LOD) of the assay is 125 Genome Equivalents/mL. A positive result is indicative of the presence of SARS-CoV-2 RNA. ?Clinical correlation with patient history and other diagnostic information is necessary to determine patient infection status. A negative (Not Detected) result does not preclude SARS-CoV-2 infection. In patients with clinical symptoms and other tests that are consistent with SARS-CoV-2 infection, negative results should be treated as presumptive negative and a new specimen should be tested with alternative PCR molecular test. Invalid: Please collect a new specimen for repeat patient testing if clinically indicated. Lab Interpretation Normal (test code = 82964-0) [facility]>14 WEEKS US [id number] 22:14:45Cephalic presentationUnBaylor Scott & White Medical Center – BrenhamPOIA URINALYSIS W/O SPECIFIC [id number] 21:53:00 Test Item Value Reference Range Interpretation Comments POCT PH U (test code = 3254) N/A 5-8 POCT U LEUK EST (test code = N/A Negative - Negative 3263) POCT U NIT (test code = 3262) N/A Negative - Negative POCT U PROT (test code = 3259) Negative Negative - Negative POCT U GLU (test code = 3256) Negative Negative - Negative POCT U KETONE (test code = 3258) N/A Negative - Negative POCT U BLD (test code = 3257) N/A Negative - Negative [facility] URINALYSIS W/O SPECIFIC [id number] 20:44:00 Test Item Value Reference Range Interpretation Comments POCT PH U (test code = 3254) n/a 5-8 POCT U LEUK EST (test code = 3263) na Negative - Negative POCT U NIT (test code = 3262) n/a Negative - Negative POCT U PROT (test code = 3259) neg Negative - Negative POCT U GLU (test code = 3256) neg Negative - Negative POCT U KETONE (test code = 3258) n/a Negative - Negative POCT U BLD (test code = 3257) n/a Negative - Negative Lab Interpretation (test code = Normal 40066-8) [facility] CLC OR LCC ONLY - WET [id number] 09:25:03 Test Item Value Reference Range Interpretation Comments CLUE CELLS WET PREP (test code = None Seen None Seen HPF 9883211544) BACTERIA WET PREP (test code = Few None Seen HPF A 1025739750) WBC WET PREP (test code = Few None Seen HPF A 7071156245) RBC WET PREP (test code = Few None Seen HPF A 2565649670) TRICHOMONAS WET PREP (test code = None Seen None Seen HPF 8137178266) YEAST WET PREP (test code = None Seen None Seen HPF 1319983923) Lab Interpretation (test code = Abnormal 29732-7) [facility] URINALYSIS W/O SPECIFIC [id number] 16:24:00 Test Item Value Reference Range Interpretation Comments POCT PH U (test code = 3254) n/a 5-8 POCT U LEUK EST (test code = 3263) n/a Negative - Negative POCT U NIT (test code = 3262) n/a Negative - Negative POCT U PROT (test code = 3259) neg Negative - Negative POCT U GLU (test code = 3256) neg Negative - Negative POCT U KETONE (test code = 3258) n/a Negative - Negative POCT U BLD (test code = 3257) n/a Negative - Negative [facility] URINALYSIS W/O SPECIFIC [id number] 20:08:00 Test Item Value Reference Range Interpretation Comments POCT PH U (test code = 3254) N/A 5-8 POCT U LEUK EST (test code = N/A Negative - Negative 3263) POCT U NIT (test code = 3262) N/A Negative - Negative POCT U PROT (test code = 3259) Negative Negative - Negative POCT U GLU (test code = 3256) Negative Negative - Negative POCT U KETONE (test code = 3258) N/A Negative - Negative POCT U BLD (test code = 3257) N/A Negative - Negative [facility] CLC OR LCC ONLY - WET [id number] 17:13:38 Test Item Value Reference Range Interpretation Comments CLUE CELLS WET PREP (test code = Few None Seen HPF A 8512210573) BACTERIA WET PREP (test code = Moderate None Seen HPF A 3226481338) WBC WET PREP (test code = Moderate None Seen HPF A 7241618607) TRICHOMONAS WET PREP (test code = None Seen None Seen HPF 0777505682) YEAST WET PREP (test code = None Seen None Seen HPF 6105264241) Lab Interpretation (test code = Abnormal 32286-4) [facility] URINALYSIS W/O SPECIFIC [id number] 14:01:00 Test Item Value Reference Range Interpretation Comments POCT PH U (test code = 3254) n/a 5-8 POCT U LEUK EST (test code = 3263) n/a Negative - Negative POCT U NIT (test code = 3262) n/a Negative - Negative POCT U PROT (test code = 3259) neg Negative - Negative POCT U GLU (test code = 3256) neg Negative - Negative POCT U KETONE (test code = 3258) n/a Negative - Negative POCT U BLD (test code = 3257) n/a Negative - Negative [facility] W/O SPECIFIC [id number] 13:55:00 Test Item Value Reference Range Interpretation Comments POCT PH U (test code = 3254) N/A 5-8 POCT U LEUK EST (test code = N/A Negative - Negative 3263) POCT U NIT (test code = 3262) N/A Negative - Negative POCT U PROT (test code = 3259) Negative Negative - Negative POCT U GLU (test code = 3256) Negative Negative - Negative POCT U KETONE (test code = 3258) N/A Negative - Negative POCT U BLD (test code = 3257) N/A Negative - Negative [facility] W/O SPECIFIC [id number] 15:02:00 Test Item Value Reference Range Interpretation Comments POCT PH U (test code = 3254) n/a 5-8 POCT U LEUK EST (test code = 3263) n/a Negative - Negative POCT U NIT (test code = 3262) n/a Negative - Negative POCT U PROT (test code = 3259) neg Negative - Negative POCT U GLU (test code = 3256) neg Negative - Negative POCT U KETONE (test code = 3258) n/a Negative - Negative POCT U BLD (test code = 3257) n/a Negative - Negative Lab Interpretation (test code = Normal 45689-5) [facility]<14 WEEKS US [id number] 05:12:00- Limited USG for FHT: ?Single live IUP measured 11 4/7 weeks, not consistent with LMP. ?Will date by this USG unless clinically indicated otherwise Reno Ibarra MD ?05/06/2020 ?11:11 PMUnBaylor Scott & White Medical Center – Brenham POCT URINALYSIS W/O SPECIFIC [id number] 16:34:00 Test Item Value Reference Range Interpretation Comments POCT PH U (test code = 3254) n/a 5-8 POCT U LEUK EST (test code = 3263) n/a Negative - Negative POCT U NIT (test code = 3262) n/a Negative - Negative POCT U PROT (test code = 3259) neg Negative - Negative POCT U GLU (test code = 3256) neg Negative - Negative POCT U KETONE (test code = 3258) n/a Negative - Negative POCT U BLD (test code = 3257) n/a Negative - Negative Lab Interpretation (test code = Normal 64228-2) [facility]fieldPOIA [id number] 15:22:00 Test Item Value Reference Range Interpretation Comments POCT PREG (test code = 1605) Positive On board controls acceptable with C Yes Line (test code = 3574) POCT PREG LOT # (test code = 3575) POCT PREG TEST DATE (test code = 3576) [facility] URINALYSIS W/O SPECIFIC [id number] 15:22:00 Test Item Value Reference Range Interpretation Comments POCT PH U (test code = 3254) 5 mg/dl 5-8 POCT U LEUK EST (test code = 1+ Negative - Negative 3) POCT U NIT (test code = 3262) neg Negative - Negative POCT U PROT (test code = 3259) trace Negative - Negative POCT U GLU (test code = 3256) neg Negative - Negative POCT U KETONE (test code = 3258) neg Negative - Negative POCT U BLD (test code = 3257) neg Negative - Negative Lab Interpretation (test code = Abnormal 85093-6) [facility]
--- NOTE | 2021-02-25 13:56 | ER ---
Nurse's Notes [facility] Name: Lyssa Ford Age: 21 yrs Sex: Female : 2000 Arrival Date: 02/25/2021 Time: 11:29 Bed 21 Private MD: Diagnosis: SARS-associated coronavirus as the cause of diseases classified elsewhere Presentation: 02/25 12:00 Chief complaint: Patient states: she wants to be tested for covid due to son ap3 testing positive this morning. Coronavirus screen: At this time, the client does not indicate any symptoms associated with coronavirus-19. Ebola Screen: No symptoms or risks identified at this time. Initial Sepsis Screen: Does the patient meet any 2 criteria? No. Patient's initial sepsis screen is negative. Does the patient have a suspected source of infection? No. Patient's initial sepsis screen is negative. Risk Assessment: Do you want to hurt yourself or someone else? Patient reports no desire to harm self or others. 12:00 Method Of Arrival: Ambulatory ap3 12:00 Acuity: COLTON 5 ap3 12:10 Onset of symptoms was February 25, 2021. iw Triage Assessment: 12:02 General: Appears in no apparent distress. comfortable, Behavior is calm, cooperative, ap3 appropriate for age. Pain: Denies pain. SHOULDER BONER: 12:02 LMP 02/11/2021 ap3 Historical: - Allergies: 12:01 No Known Allergies; ap3 - Home Meds: 12:01 None [Active]; ap3 - PMHx: 12:01 None; ap3 - PSHx: 12:01 None; ap3 - Immunization history:: Client reports having NOT received the Covid vaccine. - Social history:: Smoking status: Patient denies any tobacco usage or history of. Screenin:01 Abuse screen: Denies threats or abuse. Nutritional screening: No deficits noted. ap3 Tuberculosis screening: No symptoms or risk factors identified. Fall Risk None identified. Assessment: 12:30 General: Appears in no apparent distress. comfortable, Behavior is calm, cooperative. iw Neuro: Level of Consciousness is awake, alert, obeys commands, Oriented to person, place, time, situation, Moves all extremities. Full function. Cardiovascular: Patient's skin is warm and dry. Respiratory: Respiratory effort is even, unlabored, Respiratory pattern is regular, symmetrical. Derm: Skin is intact, is healthy with good turgor. Musculoskeletal: Range of motion: intact in all extremities. Vital Signs: 12:18 BP 125 / 67; Pulse 87; Temp 98.4; Pulse Ox 97% on R/A; dh4 ED Course: 11:29 Patient arrived in ED. rg4 11:47 Flo Faith PA is PHCP. cp 11:47 Flo Gabriel MD is Attending Physician. cp 11:47 Magnolia Holley, RN is Primary Nurse. iw 12:01 Triage completed. ap3 12:02 Arm band placed on right wrist. ap3 12:02 Patient has correct armband on for positive identification. Door closed. Noise ap3 minimized. 14:13 No provider procedures requiring assistance completed. Patient did not have IV access iw during this emergency room visit. Administered Medications: No medications were administered Outcome: 13:55 Discharge ordered by MD. cp 14:13 Discharged to home ambulatory. iw 14:13 Condition: good 14:13 Discharge instructions given to patient, Instructed on discharge instructions, follow up and referral plans. Demonstrated understanding of instructions, follow-up care. 14:14 Patient left the ED. iw Signatures: Magnolia Holley, RN RN iw Flo Faith PA PA cp Garcia, Rubi 4 Gaby Davenport RN RN 3 Rashaad Collier 4
--- NOTE | 2021-02-25 13:56 | EDPHYS ---
Physician Documentation [facility] Name: Lyssa Ford Age: 21 yrs Sex: Female : 2000 Arrival Date: 02/25/2021 Time: 11:29 Bed 21 Private MD: ED Physician Flo Gabriel HPI: 02/25 12:15 This 21 yrs old Female presents to ER via Ambulatory with complaints of Covid cp Test. 12:15 Patient requesting testing for COVID-19. Reports son tested positive for cp COVID-19 this morning. Patient denies any symptoms. 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 - Social history:: Smoking status: Patient denies any tobacco usage or history of. ROS: 12:13 All other systems are negative. cp Exam: 12:13 Head/Face: Normocephalic, atraumatic. cp 12:13 Constitutional: The patient appears in no acute distress, alert, awake, non-toxic, well developed, well nourished. 12:13 Cardiovascular: Rate: normal. 12:13 Respiratory: the patient does not display signs of respiratory distress, Respirations: normal, labored breathing. Vital Signs: 12:18 BP 125 / 67; Pulse 87; Temp 98.4; Pulse Ox 97% on R/A; dh4 MDM: 11:47 Patient medically screened. jorge 12:15 Differential Diagnosis flu, COVID-19. cp 13:55 Data reviewed: vital signs, nurses notes, lab test result(s), and as a result, I will cp discharge patient. 13:55 Counseling: I had a detailed discussion with the patient and/or guardian regarding: the cp historical points, exam findings, and any diagnostic results supporting the discharge/admit diagnosis, lab results, to return to the emergency department if symptoms worsen or persist or if there are any questions or concerns that arise at home. ED course: VSS. Patient asymptomatic. COVID-19 test positive. Will discharge to home to quarantine with family. 12/21 11:58 Order name: SARS-COV-2 RT PCR (Document "Date of Onset" if Symptomatic); Complete Time: 13:50 02/25 13:50 Interpretation: Abnormal: SARSCOV2 RT PCR POSITIVE. cp Administered Medications: No medications were administered Disposition: 14:00 Chart complete. cp Disposition Summary: 02/25/21 13:55 Discharge Ordered Location: Home cp Problem: new cp Symptoms: are unchanged cp Condition: Stable cp Diagnosis - SARS-associated coronavirus as the cause of diseases classified elsewhere cp Followup: cp - With: Private Physician - When: 2 - 3 days - Reason: Worsening of condition Discharge Instructions: - Discharge Summary Sheet cp - COVID-19 cp - Things to Know about the COVID-19 Pandemic - [facility] [place] cp - 10 Things You Can Do to Manage Your COVID-19 Symptoms at Home - [facility] [place] cp - COVID-19: Quarantine vs. Isolation - [facility] [place] cp - Prevent the Spread of COVID-19 if You Are Sick - [facility] [place] cp Forms: - Medication Reconciliation Form cp - Thank You Letter cp - Antibiotic Education cp - Prescription Opioid Use cp Signatures: Dispatcher [employer] EDFlo Quesada MD MD cha Page, Corey, PA PA cp Gaby Davenport, RN RN ap3
[2021-02-25 14:24] VITALS: BP 125/67; TEMP 98.4; O2SAT 97
== END 2021-02-25 14:14 | disposition home or self-care (01) ==
LOC: ER 11:24
DX: U07.1 COVID-19 (principal)
CPT/HCPCS: 99281; U0003